=== PATIENT | female | born 1965 | race Caucasian/White ===

== ENCOUNTER 2017-08-02 08:30 | Observation (INO) | payer OTHER ==
[~2017-08-02] VITALS: Ht 175.3 cm; Wt 91.6 kg
[~2017-08-02 08:30] MED LIST: CHILDREN'S MUL1 EAC2 PO; GABAPENTIN300 MG PO; LISINOPRIL20 MG PO; NORCO 5-325 TA1 EACH PO; PROTONIX40 MG PO; SEPTRA DS TABL1 EACH PO; VITAMIN D2000 UNIT PO; VITAMIN D350000 UNIT PO; VITAMIN D5000 UNIT PO; WELLBUTRIN SR100 MG; ZOFRAN ODT4 MG PO; ZOLOFT25 MG
[2017-08-02] MEDS ORDERED: RITALIN10 MG PO (08:54)
--- NOTE | 2017-08-02 10:44 | NUR ---
08/02/17 1043 Sagrario Kaur REPORT FROM LUM[facility] MARKER.
--- NOTE | 2017-08-02 11:42 | NUR ---
DRESSING AND IV SITE INTACT THRU PACU
--- NOTE | 2017-08-02 11:44 | NUR ---
PT RECEIVED FROM PACU AT 1130. PT TRANSFERED TO BED. PT STATES PAIN TOLERABLE. PT DENIES NAUSEA. PT LUNG SOUNDS CLEAR, 100% ON ROOM AIR, DENIES SOB. RIGHT HAND WITH NUMBNESS, RECEIVED NERVE BLOCK, ABLE TO MOVE FINDERS, CAP REFILL 2 SECONDS. ARM ELEVATED, ICE PACK IN PLACE. PT PROVIDED WARM BLANKETS. PT DENIES OTHER NEEDS AT THIS TIME.
--- NOTE | 2017-08-02 12:30 | NUR ---
PT RESTING IN BED. PT DENIES NAUSEA. ON ROOM AIR. PT REQUESTING PAIN MEDICATION. AT BEDSIDE. PT DENIES OTHER NEEDS AT THIS TIME.
--- NOTE | 2017-08-02 13:30 | NUR ---
PT RESTING IN BED. PT ASSISTED TO BATHROOM, SBA. PT ASSISTED BACK TO BED, ARM ELEVATED ON 2 PILLOWS. PT STATES PAIN TOLERABLE AT THIS TIME. PT DENIES NEEDS AT THIS TIME.
[2017-08-02] MEDS ORDERED: SUMATRIPTAN SUC50 MG PO (13:43)
[2017-08-02] MEDS ORDERED: NASCOBAL1 EACH NAS (13:44)
--- NOTE | 2017-08-02 14:15 | NUR ---
PT IS SITTING UP IN BED EATING HER LUNCH, CALL LIGHT IN REACH. PT DID NOT NEED ANYTHING ELSE AT THE MOMENT
--- NOTE | 2017-08-02 14:56 | NUR ---
MED REC COMPLETE WITH BIMART REFILL HISTORY AND PATIENT INTERVIEW.
--- NOTE | 2017-08-02 15:13 | NUR ---
ADMISSION PROCESS COMPLETED. PT RESTING IN BED. ICE PACK REFRESHED. PT DENIES NAUSEA. ON ROOM AIR. HEEL PROTECTORS AND SCDS IN PLACE. PT REQUESTING TO REST. CALL LIGHT WITHIN REACH.
--- NOTE | 2017-08-02 16:21 | NUR ---
PT RESTING IN BED. AT BEDSIDE. PT STATES PAIN TOLERABLE AT THIS TIME, STATES SHE IS BEGINING TO HAVE SENSATION TO PINKY FINGER. ICE PACK IN PLACE, DRESSING INTACT, SMALL AMOUNT OF DRAINAGE, UNCHANGED. PT DENIES NAUSEA, TOLERATING DIET, BOWEL TONES ACTIVE. PT DENIES NEEDS AT THIS TIME. SCDS AND HEEL PROTECTORS IN PLACE.
--- NOTE | 2017-08-02 17:57 | NUR ---
PT REQUESTING PAIN MEDICATION, GIVEN 1 TAB NORCO. DISCUSSED PAIN MANAGEMENT WITH PT. PT DENIES OTHER NEEDS AT THIS TIME. ATE 75% OF DINNER, TOLERATED WELL.
--- NOTE | 2017-08-02 18:06 | NUR ---
PT IS SITTING UP IN BED VISITING WITH FAMILY. CALL LIGHT IN REACH. PT DID NOT NEED ANYTHING ELSE AT THE MOMENT
--- NOTE | 2017-08-02 18:43 | NUR ---
PT RECEIVED TO FLOOR AT 1130. PT ON ROOM AIR, LUNG SOUNDS CLEAR. PT WITH EXTERNAL FIXATOR TO R FOREARM, ARM ELEVATED ON PILLOW, ICE PACK IN PLACE. SMALL AMOUNT OF BLOODY DRAINAGE AT WRIST, UNCHANGED SINCE 1230. PT UP 1PA TO BATHROOM, VOIDING QS. SALINE LOCKED. TOLERATING REGULAR DIET. SCD AND HEEL PROTECTORS INPLACE. I/S AT BEDSIDE. PAIN CONTROLLED WITH SCHEDULED OXYCODONE AND TORADOL, PRN NORCO 1 TAB GIVEN ONCE.
--- NOTE | 2017-08-02 19:00 | NUR ---
RECEIVED REPORT AT 1900. FOUND PT IN BED WITH RIGHT ARM ELEVATED AND FAMILY AT BEDSIDE. PT SEEMD DISAPOINTED ABOUT TODAY'S EVENTS.
--- NOTE | 2017-08-02 21:47 | NUR ---
V/S ARE WDL. SO FAR PRN PAIN MEDS ALONG WITH SCHEDULED PAIN MEDS ARE WORKING WELL. ALL FINGERS ON RIGHT HAND HAVE A CAP REFILL OF <3SEC. FINGERS ARE WARM TO TOUCH. RINGFINGER AND LITTLE FINGER STILL HAS SOME NUMBNESS. DRESSING HAS SOME BLEEDING ON UNDERSIDE OF WRIST WHICH HAS NOT INCREASED SINCE START OF SHIFT. RIGHT ARM IS ELEVATED WITH 2 PILLOWS AND ICE PACKS. ALL LOBES ARE CLEAR.
--- NOTE | 2017-08-03 | EKG ---
[facility] [address] [place] [address] Signed Normal sinus rhythm Prolonged QT Abnormal ECG No previous ECGs available Confirmed by JENIFER BROWN MD ([id number]) on 08/03/2017 12:00:04 AM Electronically Signed By: JENIFER BROWN MD 08/03/17 0000 PATIENT NAME: THOMAS CUENCA Electrocardiogram DATE OF : 63 PHYSICIAN: JENIFER BROWN MD REPORT #: [id number] REPORT IS CONFIDENTIAL AND NOT TO BE RELEASED WITHOUT AUTHORIZATION
--- NOTE | 2017-08-03 02:34 | NUR ---
PAIN IS WELL UNDER CONTROL WITH ALL PAIN MEDS AVAILABLE. PT HAD SOME ITCHING ON UPPER BODY, 6.25MG OF BENDARYL IV WAS GIVEN. PT STATED THAT IT HELPED A LOT. RIGHT FINGERS ARE WARM TO TOUCH AND CAP REFILL IS <3SEC. THERE IS NO NEW BLEEDING ON SX SITE. EDEMA ON FINGERS IS MINIMAL.
--- NOTE | 2017-08-03 04:12 | NUR ---
PT IS SLEEPING AT THIS TIME.
--- NOTE | 2017-08-03 05:25 | NUR ---
PT OVERALL HAD AN UNEVENTFUL NIGHT. EDEMA ON RIGHT ARM IS MINIMAL, FINGERS ARE ALL WARM TO TOUCH, NUMBNESS HAS ALMOST SUBSIDED. V/S ARE WDL, PT URINE OUTPUT IS ADEQUATE. PAIN IS WELL CONTROLLED WITH ALL PAIN MEDS AVAILABLE. PT HAD SOME ISSUES WITH ITCHING FROM THE OXYCODONE MOST LIKELY AND BENADRYL HAD TO BE GIVEN. NO NEW ISSUES NOTED SO FAR.
--- NOTE | 2017-08-03 08:00 | NUR ---
PT RESTING IN BED, EATING BREAKFAST. PT REQUESTING PAIN MEDICATION, RATING PAIN 8/10 TO RIGHT ARM, GIVEN 5 MG OXYCODONE, 2 TAB NORCO, IV TORADOL. ICE PACK IN PLACE. PT DENIES NAUSEA, TOLERATING REGUALR DIET, BOWEL TONES ACTIVE. PT HAS FULL SENSATION TO THUMB THROUGH MIDDLE FINGER, RING FINGER AND PINKY "FEEL TIGHT", CAP REFILL 1 SECOND, FINGERS WARM. PT WITH SCDS AND HEEL PROTECTORS INPLACE. ON ROOM AIR, O2 SATS 98%, LUNG SOUNDS CLEAR. DRESSING INTACT, OLD DRIED DRAINAGE AT WRIST. PT DENIES NEEDS AT THIS TIME. PLAN TO CONTINUE WITH PAIN MEDICATION AVAILABLE.
--- NOTE | 2017-08-03 08:08 | NUR ---
patient had just recieved breakfast, she said she could manage on her own and would call when she was finished.
--- NOTE | 2017-08-03 09:35 | NUR ---
PT REPORTING PAIN REMAINS HIGH, RATING 7/10, DESPITE NORCO, TORADOL AND OXYCODONE. DR. CALHOUN NOTIFIED, TELEPHONE ORDER TO INCREASE OXYCODONE TO 10 MG Q4H AND TO GIVE 10 MG NOW, RBOV.
--- NOTE | 2017-08-03 09:53 | NUR ---
PT GIVEN 10 MG OXYCODONE ORDERED. DISCUSSED PAIN MANAGEMENT WITH PT. PT DENIES NEEDS AT THIS TIME.
--- NOTE | 2017-08-03 10:45 | NUR ---
PT COMPLAINT OF PURITIS. GIVEN 25 MG IV BENADRYL. PT DENIES OTHER NEEDS AT THIS TIME.
--- NOTE | 2017-08-03 12:24 | NUR ---
PATIENT HAS BEEN GIVEN A CYRO CUFF FOR HER WRIST, SHE IS A BIT UNCOMFORTABLE BUT DOES NOT WANT ANY ASSISTANCE SHE WOULD LIKE TO REST AT THIS TIME.
--- NOTE | 2017-08-03 14:45 | NUR ---
PT RESTING IN BED, FRIEND AT BEDSIDE. PT GIVEN SCHEDULED OXYCODONE AND TORADOL, PT STATES PAIN "IS MUCH BETTER", RATING AT 3/5. CYROCUFF IN PLACE, PT STSTAES SHE FEELS IT IS MORE COLD AND MORE EFFECTIVE THAN ICE PACK. PT DENIES OTHER NEEDS AT THIS TIME.
--- NOTE | 2017-08-03 16:03 | NUR ---
PAIN REASSESSED, PT RATING PAIN 01/25, DISCUSSED nORCO. PT WANTING 1 TAB NORCO, GIVEN. PT DENIES OTHER NEEDS AT THIS TIME.
--- NOTE | 2017-08-03 16:20 | NUR ---
REPORT RECEIVED FROM LIUDMILA, TOOK OVER CARE OF THE PATIENT
--- NOTE | 2017-08-03 17:03 | NUR ---
PATIENT SITTING UP IN BED WATCHING TV, CRYO CUFF FILLED UP WITH ICE AND PATIENT SET UP FOR DINNER, CELL PHONE PLUGGED IN FOR HER. PATIENT DENIES PAIN OR OTHER NEEDS AT THIS TIME.
--- NOTE | 2017-08-03 18:40 | NUR ---
PATIENT OXYCODONE GIVEN PO AT THIS TIME FOR C/O PAIN, THIS IS HER SCHEDULED MEDICATION. PATIENT DENIES OTHER NEEDS
--- NOTE | 2017-08-03 19:00 | NUR ---
RECEIVED REPORT AT 1900. FOUND PT IN BED WITH FAMILY AT BEDSIDE. PT COMPLAINED OF PAIN 06/27.
--- NOTE | 2017-08-03 21:50 | NUR ---
V/S WERE WDL. PAIN IS WELL CONTROLLED WITH ALL PAIN MEDS GIVEN ON A REGULAR BASIS. BENADRYL 25MG IV GIVEN FOR ITCHING. ALL FIINGERS ON RIGHT HAND ARE WARM TO TOUCH, THERE IS STILL SOME NUMBNESS IN PINKY FINGER. RIGHT ARM IS ELEVATED AND KRYOCAF IS ON. PT IS RESTING IN BED. ALL LOBES ARE CLEAR AND PT IS PASSING GAS, NO BM SO FAR.
--- NOTE | 2017-08-04 00:25 | NUR ---
PT IS SLEEPING AT THIS TIME.
--- NOTE | 2017-08-04 02:53 | NUR ---
PAIN IS WELL CONTROLLED. PT RECEIVED ANOTHER 25MG DOSE OF BENADRYL. THERE HAS BEEN OTHERWISE NO CHANGES FOR THIS PT.
--- NOTE | 2017-08-04 04:08 | NUR ---
PT IS SLEEPING AT THIS TIME.
--- NOTE | 2017-08-04 05:57 | NUR ---
V/S WERE WDL, PAIN HAS BEEN WELL CONTROLLED WITH SCHEDULED PAIN MEDICATION, PT HAS RECEIVED BENADRYL 25MG IV X3 FOR ITCHING, FINGERS IN RIGHT HAND ARE WARM TO TOUCH WITH MINIMAL EDEMA. DRESSING IS D/I WITH SOME OLD SHADOWING FORM YESTERDAY. NO NEW ISSUES NOTED FOR THIS PT.
--- NOTE | 2017-08-04 08:04 | NUR ---
PT AWAKE IN BED. ATE BREAKFAST. TOLERATED WELL. ACCIDENTALLY BUMPED ARM IN BED AND ASKED FOR PRN PAIN MEDS. STATES THAT IT WAS FEELING PRETTY GOOD PRIOR TO THAT. STATES RIGHT PINKY AND RING FINGER HAVE GONE NUMB AGAIN. REPOSITIONED FOR COMFORT. CRYO IN PLACE. PULSES INTACT, FINGERS WARM AND ABLE TO WIGGLE ALL.
--- NOTE | 2017-08-04 10:14 | NUR ---
PT STATES THE ARM ITSELF IT NOT VERY PAINFUL BUT THE NERVE NUMBNESS IS DRIVING HER CRAZY AND BUMPS PAIN UP TO 04/27
[2017-08-04] MEDS ORDERED: MIRALAX17 GM PO (10:27)
[2017-08-04] MEDS ORDERED: NEURONTIN300 MG PO (10:27)
[2017-08-04] MEDS ORDERED: LEVAQUIN750 MG PO (10:27)
[2017-08-04] MEDS ORDERED: OXYCODONE HCL5 MG PO (10:28)
[2017-08-04] MEDS ORDERED: HYDROCODON-ACE1 EA11 PO (10:28)
--- NOTE | 2017-08-04 10:28 | NUR ---
DR IN ROOM TO SEE PT. SENDING HOME TODAY. PT APPEARS AGREEABLE. IS LOOKING FORWARD TO GOING HOME.
--- NOTE | 2017-08-04 11:56 | NUR ---
PT DC HOME WITH . WHEELED OUT TO CAR WITH NUTRITION SERVICES WORKER. DC INSTRUCTIONS GIVEN AND AND PT VERBALIZED UNDERSTANDING. SL REMOVED WNL. EXT. FIXATOR INPLACE WITH SMALL AMOUNT OF DRY DRAINAGE ON GAUZE. PAIN WELL CONTROLLED WITH MEDS.
--- NOTE | 2017-08-05 08:31 | OR ---
[facility] [address] [place], [place] [address] Signed DATE OF PROCEDURE: 08/02/17 PREOPERATIVE DIAGNOSIS: Grade 1 right open wrist fracture, distal radius. POSTOPERATIVE DIAGNOSIS: Grade 1 right open wrist fracture, distal radius. PROCEDURES PERFORMED Open reduction and pinning of distal radius with application of external fixator. Irrigation and debridement of skin, subcutaneous tissue, and bone, right wrist. SURGEON: Rusty Levine MD CONTRACT ADMINISTRATION SPECIALIST: None. ANESTHESIA: General with axillary block. BLOOD LOSS: 50. IMPLANTS Two 1.6 mm K-wires, one 2.0 K-wire, Synthes distal radius external fixator set. BRIEF HISTORY Comfort is a 51-year-old female who was at the [employer] getting ready for the parade this morning. The horse next to her was spooked, knocked her to the ground where she sustained a distal radius fracture. She was brought to me at the [employer] with her wrist basically 180 degrees displaced. The ulna was present through the skin. I reduced her to a neutral position there and placed her in a splint with dressings on the wound. She then had her drive her to the emergency room where I met her. Risks, benefits, and alternatives of surgery were discussed with her and she elected to proceed. DESCRIPTION OF PROCEDURE Once consent was obtained, she was taken to the operating room. After adequate anesthesia, a well-padded proximal arm tourniquet was placed. The right upper extremity was prepped and draped in a standard sterile fashion. The ulnar laceration was then extended to allow delivery of the bone. This was then grossly debrided of hay and dirt and washed out with a liter of antibiotic solution. Once this was completed, we attempted a closed reduction of the wrist; however, it was quite displaced, fragmented and unable to get it reduced. We made a small 1 cm dorsal incision over the distal radius. Using the [place] elevator, I was able to shoe horn the bone back into rough position. We then closed reduced it and placed 2 K-wires in radial styloid engaging proximally across the fracture engaging the body of the radius. A 2.0 K-wire was placed from the dorsal lip of the joint and again across the fracture engaging the body of the Electronically Signed By: RUSTY LEVINE MD 08/05/17 0831 PATIENT NAME: COMFORT CUENCA OPERATIVE REPORT DATE OF : 63 PHYSICIAN: RUSTY LEVINE MD REPORT #: [id number] REPORT IS CONFIDENTIAL AND NOT TO BE RELEASED WITHOUT AUTHORIZATION [facility] [address] [place], [place] [address] Signed radius. This was held in reasonably good fracture position. The distal radius has multiply comminuted and I really could not get any better reduction closed and I felt that an open reduction would cause more problems. We went ahead and applied the external fixator. The 2 pins in the index metacarpal placed through separate stab in cisions, 2 pins in the midshaft radius. Again, these were done through stab incisions with blunt dissection down to the bone. The guide was then placed on the bone and both pins were placed. The clamps were applied and the long carbon fiber bar was applied with the wrist in about 15 degrees of ulnar deviation and 15 degrees of flexion. This was checked using the image intensifier and the wrist was not over distracted as the metacarpal and carpal alignment was normal. All attachments on external fixator were tightened. The wounds were cleansed. The 2 incisions were closed using 2-0 nylon and all wounds were dressed with Mepilex Ag dressing. Gauze was placed over this and roller gauze was then used to secure it. She was awakened and taken to recovery room in satisfactory condition. All sponge, needle, instrument counts were correct. Rusty Levine MD BA/Modl /[id number] cc: Jony Cortez DO Electronically Signed By: RUSTY LEVINE MD 08/05/17 0831 PATIENT NAME: COMFORT CUENCA OPERATIVE REPORT DATE OF : 63 PHYSICIAN: RUSTY LEVINE MD REPORT #: [id number] REPORT IS CONFIDENTIAL AND NOT TO BE RELEASED WITHOUT AUTHORIZATION
== END 2017-08-04 15:00 | disposition home or self-care (01) ==
LOC: ED 08:30 → DS 09:26 → MS 11:30 → DS 11:31 → MS 08-04 15:00
PROVIDERS: ADMIT Specialist
PROC: 0PSH04Z Reposition Right Radius with Internal Fixation Device, Open Approach (ICD-10-PCS; 2017-08-02)
PROC: 0PHH35Z Insertion of External Fixation Device into Right Radius, Percutaneous Approach (ICD-10-PCS; 2017-08-02)
PROC: 3E0T3CZ (ICD-10-PCS; principal; 2017-08-02 09:30)
DX: S52.501B Unspecified fracture of the lower end of right radius, initial encounter for open fracture type I or II (principal); S52.601B Unspecified fracture of lower end of right ulna, initial encounter for open fracture type I or II; K21.9 Gastro-esophageal reflux disease without esophagitis; W55.12XA Struck by horse, initial encounter; I10 Essential (primary) hypertension; F32.9 Major depressive disorder, single episode, unspecified; G89.18 Other acute postprocedural pain; S54.01XA Injury of ulnar nerve at forearm level, right arm, initial encounter; L29.9 Pruritus, unspecified; T40.2X5A Adverse effect of other opioids, initial encounter; Y92.838 Other recreation area as the place of occurrence of the external cause; Z79.899 Other long term (current) drug therapy; Z88.0 Allergy status to penicillin; Z88.5 Allergy status to narcotic agent; Z23 Encounter for immunization
CPT/HCPCS: 01830; 64415; 71010; 73100; 73110; 76942; 80053; 85025; 90715; 93005; 93010; 96374; 96375; 96376; 99285; C1713; G0378; J0330; J0690; J0735; J1100; J1200; J1885; J1956; J2250; J2405; J2704; J2765; J3010

== ENCOUNTER 2019-03-13 13:00 | Emergency (ER) | payer OTHER ==
[~2019-03-13] VITALS: Ht 175.3 cm; Wt 90.7 kg
--- OUTSIDE RECORDS SUMMARY | ~2019-03-13 | XMS | Encounter Summary ---
Demographics + + + | Address | [address] | | | [place] [address] | + + + | Home Phone | | + + + | Preferred Language | Unknown | + + + | Marital Status | | + + + | Baptism Affiliation | [id number] | + + + | Race | Unknown | + + + | Ethnic Group | Unknown | + + + Author + + + | Author | [facility] | + + + | Organization | [facility] | + + + | Address | Unknown | + + + | Phone | Unavailable | + + + Support + + + + + | Name | Relationship | Address | Phone | + + + + + | Tacho Joe | ECON | [address] | | | | | [place] | | | | | [address] | | + + + + + Care Team Providers + +------+ + | Care Nature Photographer Name | Role | Phone | + +------+ + | Souleymane Calderon MD | PCP | | + +------+ + Reason for Visit + + + | Reason | Comments | + + + | Follow-up | Right wrist pain | + + + Surgical (Routine) + +--------+ + + + + | Status | Reason | Specialty | Diagnoses / | Referred By | Referred To | | | | | Procedures | Contact | Contact | + +--------+ + + + + | Authorized | | Orthopedic | Diagnoses | Self, | [facility] | | | | Surgery | RIGHT WRIST | Referred | [place] | | | | | Procedures | Phone: | Samreen [address] | | | | | ORTHO | [phone] | [facility] [place], | | | | | FOLLOW UP | Fax: | [place] | | | | | | [phone] | [address] | | | | | | | Phone: | | | | | | | [phone] | | | | | | | Fax: | | | | | | | [phone] | + +--------+ + + + + Encounter Details +--------+---------+ + + + | Date | Type | Department | Care Team | Description | +--------+---------+ + + + | 12/15/ | Office | [facility] | Augustus Olmos, | Right wrist pain | | 2019 | Visit | [facility] | MD [address] | (Primary Dx); Right | | | | [facility] | [place] [address] | wrist fracture, | | | | [address] | [phone] | open, initial | | | | [place], [place] | | encounter; Acquired | | | | [address] | | trigger finger of | | | | [phone] | | right middle finger | +--------+---------+ + + + Social History + +-------+ +--------+------+ | Tobacco Use | Types | Packs/Day | Years | Date | | | | | Used | | + +-------+ +--------+------+ | Never Smoker | | | | | + +-------+ +--------+------+ + +---+---+---+ | Smokeless Tobacco: | | | | | Never Used | | | | + +---+---+---+ + + +---------+ + | Alcohol Use | Drinks/We | oz/Week | Comments | | | ek | | | + + +---------+ + | No | | | | + + +---------+ + + + + | Sex Assigned at | Date Recorded | | | | + + + | Not on file | | + + + as of this encounter Last Filed Vital Signs + + + + | Vital Sign | Reading | Time Taken | + + + + | Blood Pressure | 124/78 | 12/15/2018 7:54 AM PST | + + + + | Pulse | - | - | + + + + | Temperature | - | - | + + + + | Respiratory Rate | - | - | + + + + | Oxygen Saturation | - | - | + + + + | Inhaled Oxygen | - | - | | Concentration | | | + + + + | Weight | 92.5 kg (204 lb) | 12/15/2018 7:54 AM PST | + + + + | Height | 175.3 cm (5' 9") | 12/15/2018 7:54 AM PST | + + + + | Body Mass Index | 30.13 | 12/15/2018 7:54 AM PST | + + + + in this encounter Progress Notes Augustus Olmos MD - 12/15/2018 8:20 AM PSTFormatting of this note may be different from the original. [facility]: Orthopedic Surgery Patient Name:Comfort Joe AGE: 53 y.o. :1965 CHIEF COMPLAINT: Follow-up (Right wrist pain) Right middle finger triggering HPI HISTORY OF PRESENT ILLNESS Our patient is a very pleasant 53-year-old female status post a severe right distal radius fracture that occurred approximately 13 months ago that is status post multiple surgeries. T he patient today complains of right middle finger triggering, this has be recalcitrant to mu ltiple injections. The pain is at the base of the A1 juan carlos. She is still slightly stiff wit h deep flexion of the right middle finger. The problem is constant and of moderate severity. There is mild associated swelling. She has improved dramatically with her range of motion o f the wrist including full pronation and supination without any instability. She is still zendejas ving some mild problems with making a composite fist. No signs or symptoms of infection. She does have sharp pain with middle finger motion that unfortunately has worsened since last v isit REVIEW OF SYSTEMS, comprehensive review of systems performed and is negative except for not ed above and below Review of Systems Past Medical History Diagnosis Date Arthritis Biceps muscle strain can't move shoulder, bicep fingers on the right. Hemorrhage of gastrointestinal tract, unspecified 2008 bleeding ulcer Hypertension wnl currently Kidney stone 2001 Narcolepsy Unspecified visual disturbance GLASSES / MCGEE-ADIE SYNDROME L EYE Wrist injury horse injury on 08/09/2017, compound FX Past Surgical History Procedure Laterality Date CARPAL TUNNEL RELEASE 08/13/2017 Procedure: CARPAL TUNNEL RELEASE; Surgeon: Augustus Olmos MD; Location: [facility]; Service: Orthopedics;; SECTION 1991 CHOLECYSTECTOMY 1992 ELBOW SURGERY Left 2014 GASTRIC BYPASS 2009 HARDWARE PRESENT SCREWS IN LEFT LEG HARDWARE REMOVAL Right 11/12/2017 Procedure: HAND - HARDWARE REMOVAL; Surgeon: Augustus Olmos MD; Location: [facility]; Service: Orthopedics; Laterality: Right; HYSTERECTOMY 1991 ORIF TIBIA & FIBULA FRACTURES Left 2008 STELLATE GANGLION BLOCK Right 05/12/2018 STELLATE GANGLION BLOCK Right 05/26/2018 STELLATE GANGLION BLOCK Right 06/02/2018 WRIST SURGERY Right 08/13/2017 Procedure: WRIST - ORIF; Surgeon: Augustus Olmos MD; Location: [facility]; Service : Orthopedics; Laterality: Right; RT WRIST ORIF SPANNING PLATE Allergies Allergen Reactions Hydromorphone Hives, Nausea and Vomiting and Rash Penicillin G Anaphylaxis Codeine Other (See Comments) HIVES, HALLUCINATIONS, VOMIT. Morphine Other (See Comments) HIVES , HALLUCINATION, VOMIT Oxycodone Other (See Comments) Dizziness, NAUSEA Prior to Admission medications Medication Sig Start Date End Date Taking? Authorizing Provider calcitRIOL (ROCALTROL) 0.5 MCG capsule Take 0.5 mcg by mouth. Historical Provider diphenhydrAMINE (BENADRYL) 25 mg capsule Take 25 mg by mouth every 6 (six) hours as needed for Itching. Historical Provider gabapentin (NEURONTIN) 100 MG capsule Take 100 mg by mouth. 12/16/17 Historical Provider gabapentin (NEURONTIN) 300 MG capsule Take 300 mg by mouth 3 (three) times daily. Histor ical Provider HYDROcodone-acetaminophen (NORCO) 5-325 MG per tablet Take 1 tablet by mouth every 6 (six) hours as needed for Pain. Historical Provider Ibuprofen-Diphenhydramine Cit (ADVIL PM PO) Take by mouth. Historical Provider levofloxacin (LEVAQUIN) 750 MG tablet Take 750 mg by mouth daily. Historical Provider lisinopril (ZESTRIL) 20 MG tablet Take 20 mg by mouth. Historical Provider methylphenidate (RITALIN) 10 MG tablet Take 10 mg by mouth. Historical Provider pantoprazole (PROTONIX) 40 MG tablet Take 40 mg by mouth. Historical Provider sertraline (ZOLOFT) 50 MG tablet Take 50 mg by mouth. Historical Provider SUMAtriptan (IMITREX) 50 MG tablet Take 50 mg by mouth. Historical Provider Family History Problem Relation Age of Onset Diabetes type II Father Hypertension Father Social History Social History Marital status: Spouse name: N/A Number of children: N/A Years of education: N/A Occupational History Not on file. Social History Main Topics Smoking status: Never Smoker Smokeless tobacco: Never Used Alcohol use No Drug use: No Sexual activity: Not on file Comment: NOT ASKED Other Topics Concern Not on file Social History Narrative No narrative on file PHYSICAL EXAM Vital Signs: BP 124/78 | Ht 1.753 m (5' 9") | Wt 92.5 kg (204 lb) | BMI 30.13 kg/m Physical Exam Well developed well nourished patient No acute distress Alert and oriented times three Head and neck are normal Oropharynx is clear Gaze is conjugate Breathing is unlabored Heart is regular rate and rhythm Ortho Exam RUE Skin is clean, dry and intact Brisk cap refill 2+ pulses No deficits noted Motor and sensation are intact No masses, no lymphadenopathy Normal sweat patterns No hyperreflexia Negative sheikh's maneuver Compartments are soft and compressible Right hand has significant pain with range of motion of the middle finger with metacarpopha langeal joint motion from 0 to about 30 of flexion and then pain over the A1 juan carlos limits any further motion PROBLEM LIST Encounter Diagnoses Name Primary? Right wrist pain Yes Right wrist fracture, open, initial encounter Acquired trigger finger of right middle finger ASSESSMENT & PLAN Conservative and operative options reviewed. The patient would like to move forward with dejesus rgery understanding all options available. Anesthesia risks and benefits have been reviewed as well. Risks and benefits of right middle finger trigger release surgery have been reviewed in det ail. Healing rates have been reviewed in detail as well as what to expect postoperatively. W e will move forward with surgery. Risks include but are not limited to bleeding, infection, need for reoperation, damage to nerves/blood vessels/tendons, chronic deformity and pain. All questions have been answered. Rehabilitation protocols reviewed. Success rates and recurrence rates have been discussed. N o guarantees have been given. Primary Care Physician: SOULEYMANE Olmos MD This document has been prepared with [employer] voice recognition system. The possibility of "s ound alike" carcass washer errors, and additions, or deletions may occur. If there is any que stion with respect to clarity of the message being conveyed, please contact me directly for clarification. in this encounter Plan of Treatment + +--------+ + + | Name | Priori | Associated Diagnoses | Order Schedule | | | ty | | | + +--------+ + + | Case Request Operating Room: | Routin | Right wrist pain | Expected: | | FINGER - TRIGGER RELEASE | e | Right wrist | 12/15/2018, Expires: | | | | fracture, open, | 12/15/2019 | | | | initial encounter | | + +--------+ + + as of this encounter Results X-ray wrist limited right (12/15/2018 8:04 AM) + + + | Impressions | Performed At | + + + | Right wrist shows healing of a complex right distal radius | [facility] | | fracture dislocation with some posttraumatic degenerative disease and | [facility] | | mild rotation of the lunate that appears actually improved from | | | previous films. | | + + + + + + | Narrative | Performed At | + + + | INDICATION: | [facility] | | Right wrist fracture COMPARISON: 03/31/18 TECHNIQUE: Multiple views | [facility] | | right wrist FINDINGS: Right wrist shows healing of a complex right | | | distal radius fracture dislocation with some posttraumatic | | | degenerative disease and mild rotation of the lunate that appears | | | actually improved from previous films. | | | | | |FINDINGS: Right wrist shows healing of a complex right distal radius | | |fracture dislocation with some posttraumatic degenerative disease and mild | | |rotation of the lunate that appears actually improved from previous films. | | | | | + + + + + + + + | Performing | Address | City/State/Zipcode | Phone Number | | Organization | | | | + + + + + | [facility] | [address] | [place] [address] | | + + + + + in this encounter Visit Diagnoses + + | Diagnosis | + + | Right wrist pain - Primary | + + | Pain in joint, forearm | + + | Right wrist fracture, open, initial encounter | + + | Acquired trigger finger of right middle finger | + +
--- OUTSIDE RECORDS SUMMARY | ~2019-03-13 | XMS | Encounter Summary ---
Demographics + + + | Address | [address] | | | [place] [address] | + + + | Home Phone | | + + + | Preferred Language | Unknown | + + + | Marital Status | | + + + | Hindu Affiliation | 1013 | + + + | Race | Unknown | + + + | Ethnic Group | Unknown | + + + Author + + + | Author | [facility] [employer] | + + + | Organization | [facility] [employer] | + + + | Address | Unknown | + + + | Phone | Unavailable | + + + Support + + + + + | Name | Relationship | Address | Phone | + + + + + | Tacho Joe | ECON | [address] | | | | | [place] | | | | | [address] | | + + + + + Care Team Providers + +------+ + | Care Director Of Education Name | Role | Phone | + +------+ + | Madhu Calderon MD | PCP | | + +------+ + Reason for Visit Auth/Cert +--------+--------+ + + + + | Status | Reason | Specialty | Diagnoses / | Referred By | Referred To | | | | | Procedures | Contact | Contact | +--------+--------+ + + + + | | | | Diagnoses | | | | | | | Right | | | | | | | middle | | | | | | | finger | | | | | | | trigger | | | | | | | Procedures | | | | | | | FINGER - | | | | | | | TRIGGER | | | | | | | RELEASE | | | +--------+--------+ + + + + Encounter Details +--------+---------+ + + + | Date | Type | Department | Care Team | Description | +--------+---------+ + + + | 01/09/ | Surgery | [facility] | Augustus Olmos, | FINGER - TRIGGER | | 2018 | | [facility] | MD Samreen PERSAUD | RELEASE | | | | OP Samreen PERSAUD | [place] [address] | | | | | [place], [place] | [phone] | | | | | [address] | | | | | | [phone] | | | +--------+---------+ + + + Social History [...] + + + | Blood Pressure | 149/80 | 01/09/2019 9:30 AM PST | + + + + | Pulse | 53 | 01/09/2019 9:30 AM PST | + + + + | Temperature | 36.6 C (97.8 F) | 01/09/2019 9:15 AM PST | + + + + | Respiratory Rate | 16 | 01/09/2019 9:30 AM PST | + + + + | Oxygen Saturation | 96% | 01/09/2019 9:30 AM PST | + + + + | Inhaled Oxygen | - | - | | Concentration | | | + + + + | Weight | 93.4 kg (206 lb) | 01/09/2019 8:08 AM PST | + + + + | Height | 175.3 cm (5' 9") | 01/09/2019 8:08 AM PST | + + + + | Body Mass Index | 30.42 | 01/09/2019 8:08 AM PST | + + + + in this encounter Discharge Summaries Augustus Olmos MD - 01/09/2019 9:21 AM PSTFormatting of this note may be different from the original. [facility] Service: Orthopedic Surgery Brief Post-op Discharge Note DISCHARGE DIAGNOSES: Active Problems: Right wrist fracture, open, initial encounter Right wrist pain Resolved Problems: * No resolved hospital problems. * Procedures: Procedure(s) with comments: FINGER - TRIGGER RELEASE - RT MIDDLE FINGER TRIGGER RELEASE DUPUYTRENS CONTRACTURE RELEASE - Right ring finger TENOTOMY-UPPER EXTREMITY - flexor tendon partial tenotomy This patient was transferred to the recovery area post-operatively and has experienced no d ifficulties at the time of my assessment. The patient is anticipated to continue to meet di scharge criteria per protocol as assessed by nursing and may be discharged at that time with designated caregiver. Disposition: Home Condition: Good Code Status: Prior Follow up: Madhu Calderon MD [address] [place] [id number] Medication List START taking these medications ondansetron 4 MG tablet QTY: 20 tablet Refills: 0 Commonly known as: ZOFRAN Take 1 tablet by mouth 3 (three) times daily as needed for Nausea for up to 7 days. CHANGE how you take these medications * HYDROcodone-acetaminophen 5-325 MG per tablet QTY: 15 tablet Refills: 0 Commonly known as: NORCO Take 1 tablet by mouth every 6 (six) hours as needed for Pain for up to 7 days. What changed: You were already taking a medication with the same name, and this prescripti on was added. Make sure you understand how and when to take each. * HYDROcodone-acetaminophen 5-325 MG per tablet Refills: 0 Commonly known as: NORCO What changed: Another medication with the same name was added. Make sure you understand ho w and when to take each. * This list has 2 medication(s) that are the same as other medications prescribed for you. Read the directions carefully, and ask your doctor or other care provider to review them wit h you. CONTINUE taking these medications ADVIL PM PO Refills: 0 calcitRIOL 0.5 MCG capsule Refills: 0 Commonly known as: ROCALTROL diphenhydrAMINE 25 mg capsule Refills: 0 Commonly known as: BENADRYL * gabapentin 100 MG capsule Refills: 0 Commonly known as: NEURONTIN * gabapentin 300 MG capsule Refills: 0 Commonly known as: NEURONTIN lisinopril 20 MG tablet Refills: 0 Commonly known as: ZESTRIL methylphenidate 10 MG tablet Refills: 0 Commonly known as: RITALIN pantoprazole 40 MG tablet Refills: 0 Commonly known as: PROTONIX sertraline 50 MG tablet Refills: 0 Commonly known as: ZOLOFT SUMAtriptan 50 MG tablet Refills: 0 Commonly known as: IMITREX * This list has 2 medication(s) that are the same as other medications prescribed for you. Read the directions carefully, and ask your doctor or other care provider to review them wit h you. You might also be taking other medications not listed above. If you have questions about an y of your other medications, talk to the person who prescribed them or your Primary Care Pro vider. Where to Get Your Medications These medications were sent to [id number] - [place], [place] - [address] [place] [address] ondansetron 4 MG tablet You can get these medications from any pharmacy Bring a paper prescription for each of these medications HYDROcodone-acetaminophen 5-325 MG per tablet Augustus Olmos MD 01/09/2019in this encounter Discharge Instructions Augustus Olmos MD - 01/09/2019Augustus Olmos MD Postoperative Instructions As you recover from surgery here are instructions to aid the healing process and keep you s afe. Diet Regular diet, or your diet specified by your primary care provider. Begin with bonnie ar liquids and advance to solids as you tolerate. No alcoholic beverages on the day of surge ry. Also, please AVOID smoking as this can significantly delay the healing process. Activity Keep the operative extremity above the level of your heart for the next 5 days . Please avoid shoulder slings as these place your hand/wrist below the level of your heart Dressing/Surgery site Please keep your dressing clean and dry. You may remove your dressing in 3 days. You may shower tomorrow but please keep your wound/dressing covered and dry Pain medicine Take pain medicine PRN or as needed. Try to wean yourself gradually off pain medicine over several days. Do NOT drink alcohol or take sleeping medicines while on narcotics. You should take pain medicine with food to avoid nausea. In addition, pain med icine may cause constipation. Please drink plenty of fluids and take a laxative of your sheppard ce (over the counter) as needed. After surgery Slight swelling, pain and some bruising may occur after surgery. Please contact my office if any of the following occur: sustained temperature over 101.5?F, excessi ve bleeding, rapidly increasing numbness, inability to urinate within 8 hours, progressively increasing pain not relieved by pain medicines, signs of a wound infection (increased redne ss, swelling, pus drainage), or excessive swelling/tightness. Office appointment Please return to my office in 10-14 days for a dressing change. Call with any questions or to schedule/re-schedule an appointment. I look forward to seeing you. in this encounter Medications at Time of Discharge + + +--------+---------+ + + | Medication | Sig. | Disp. | Refills | Start | End Date | | | | | | Date | | + + +--------+---------+ + + | calcitRIOL | Take 0.5 mcg by | | | | | | (ROCALTROL) 0.5 MCG | mouth daily. | | | | | | capsule | | | | | | + + +--------+---------+ + + | diphenhydrAMINE | Take 25 mg by mouth | | | | | | (BENADRYL) 25 mg | every 6 (six) hours | | | | | | capsule | as needed for | | | | | | | Itching. | | | | | + + +--------+---------+ + + | gabapentin | Take 100 mg by | | | 12/16/19 | | | (NEURONTIN) 100 MG | mouth. | | | 18 | | | capsule | | | | | | + + +--------+---------+ + + | gabapentin | Take 300 mg by mouth | | | | | | (NEURONTIN) 300 MG | 3 (three) times | | | | | | capsule | daily. | | | | | + + +--------+---------+ + + | | Take 1 tablet by | | | | | | HYDROcodone-acetamin | mouth every 6 (six) | | | | | | ophen (NORCO) 5-325 | hours as needed for | | | | | | MG per tablet | Pain. | | | | | + + +--------+---------+ + + | | Take by mouth. | | | | | | Ibuprofen-Diphenhydr | | | | | | | amine Cit (ADVIL PM | | | | | | | PO) | | | | | | + + +--------+---------+ + + | lisinopril | Take 20 mg by mouth. | | | | | | (ZESTRIL) 20 MG | | | | | | | tablet | | | | | | + + +--------+---------+ + + | methylphenidate | Take 10 mg by mouth. | | | | | | (RITALIN) 10 MG | | | | | | | tablet | | | | | | + + +--------+---------+ + + | pantoprazole | Take 40 mg by mouth. | | | | | | (PROTONIX) 40 MG | | | | | | | tablet | | | | | | + + +--------+---------+ + + | sertraline | Take 50 mg by mouth | | | | | | (ZOLOFT) 50 MG | daily. | | | | | | tablet | | | | | | + + +--------+---------+ + + | SUMAtriptan | Take 50 mg by mouth. | | | | | | (IMITREX) 50 MG | | | | | | | tabletIndications: | | | | | | | Migraine, PRN | | | | | | + + +--------+---------+ + + | | Take 1 tablet by | 15 | 0 | 01/09/20 | | | HYDROcodone-acetamin | mouth every 6 (six) | tablet | | 19 | 9 | | ophen (NORCO) 5-325 | hours as needed for | | | | | | MG per tablet | Pain for up to 7 | | | | | | | days. | | | | | + + +--------+---------+ + + | ondansetron | Take 1 tablet by | 20 | 0 | 01/09/20 | | | (ZOFRAN) 4 MG tablet | mouth 3 (three) | tablet | | 19 | 9 | | | times daily as | | | | | | | needed for Nausea | | | | | | | for up to 7 days. | | | | | + + +--------+---------+ + + as of this encounter Plan of Treatment Not on fileas of this encounter Procedures + +--------+ + + + | Procedure Name | Priori | Date/Time | Associated Diagnosis | Comments | | | ty | | | | + +--------+ + + + | TENOTOMY-UPPER | | 01/09/2019 | Right wrist pain | | | EXTREMITY | | 8:55 AM | | | | | | PST | | | + +--------+ + + + +---+--------+ | | Case | | | Notes | | | RT | | | MIDDLE | | | | | | FINGER | | | | | | TRIGGE | | | R | | | RELEAS | | | E | +---+--------+ + +---+ + +---+ | DUPUYTRENS | | 01/09/2019 | Right wrist pain | | | CONTRACTURE RELEASE | | 8:55 AM | | | | | | PST | | | + +---+ + +---+ +---+--------+ | | Case | | | Notes | | | RT | | | MIDDLE | | | | | | FINGER | | | | | | TRIGGE | | | R | | | RELEAS | | | E | +---+--------+ + +---+ + +---+ | FINGER - TRIGGER | | 01/09/2019 | Right wrist pain | | | RELEASE | | 8:55 AM | | | | | | PST | | | + +---+ + +---+ +---+--------+ | | Case | | | Notes | | | RT | | | MIDDLE | | | | | | FINGER | | | | | | TRIGGE | | | R | | | RELEAS | | | E | +---+--------+ in this encounter Visit Diagnoses + + | Diagnosis | + + | Right wrist pain | + + | Pain in joint, forearm | + + | Right wrist fracture, open, initial encounter | + + Admitting Diagnoses + + | Diagnosis | + + | Right middle finger trigger | + + Administered Medications + +--------+ +-------+------+------+ | Medication Order | MAR | Action | Dose | Rate | Site | | | Action | Date | | | | + +--------+ +-------+------+------+ | bupivacaine (PF) (MARCAINE) 0.5 | Given | | 7 mLs | | | | % injection PRN, Starting Fri | | 9 08:53 | | | | | 01/09/19 at 0853, Intra-op | | PST | | | | + +--------+ +-------+------+------+ +---+---+ | | | +---+---+ + +-------+ +-------+---+---+ | ketorolac (TORADOL) injection | Given | | 30 mg | | | | 30 mg 30 mg, Intravenous, Once, | | 9 09:21 | | | | | 01/09/19 at 1000, For 1 dose, | | PST | | | | | PACU | | | | | | + +-------+ +-------+---+---+ +---+---+ | | | +---+---+ + +---------+ +---+ +---+ | lactated ringers infusion at | New Bag | | | 30 mL/hr | | | 30 mL/hr, Intravenous, | | 9 08:25 | | | | | Continuous, Starting 01/09/19 | | PST | | | | | at 0830, Pre-op | | | | | | + +---------+ +---+ +---+ +---+---+ | | | +---+---+ + +-------+ +---------+---+---+ | lidocaine 1 % injection 0.5 mL | Given | | 0.5 mLs | | | | 0.5 mL, Intradermal, PRN, for | | 9 08:25 | | | | | each IV start and peripheral | | PST | | | | | nerve blocks, Starting Fri | | | | | | | 01/09/19 at 0758, For 3 doses, | | | | | | | Pre-op | | | | | | + +-------+ +---------+---+---+ +---+---+ | | | +---+---+ + +-------+ +------+---+---+ | midazolam (VERSED) injection 2 | Given | | 2 mg | | | | mg 2 mg, Intravenous, Once PRN, | | 9 08:41 | | | | | Anxiety, Starting Sat01/09/19 at | | PST | | | | | 0758, For 1 dose, Pre-op | | | | | | + +-------+ +------+---+---+ +---+---+ | | | +---+---+ + +-------+ +------+---+---+ | ondansetron (ZOFRAN-ODT) | Given | | 8 mg | | | | disintegrating tablet 8 mg 8 mg, | | 9 09:45 | | | | | Oral, Once PRN, Nausea, | | PST | | | | | Vomiting, Starting Sat01/09/19 at | | | | | | | 0909, For 1 dose, PACU | | | | | | + +-------+ +------+---+---+ +---+---+ | | | +---+---+ in this encounter
--- OUTSIDE RECORDS SUMMARY | ~2019-03-13 | XMS | Clinical Summary ---
Demographics + + + | Address | [address] | | | [place] [address] | + + + | Home Phone | | + + + | Preferred Language | Unknown | + + + | Marital Status | | + + + | Methodist Affiliation | 1013 | + + + | Race | Unknown | + + + | Ethnic Group | Unknown | + + + Author + + + | Author | [facility] | | | and [place] | + + + | Organization | [facility] | | | and [place] | + + + | Address | Unknown | + + + | Phone | Unavailable | + + + Support + + + + + | Name | Relationship | Address | Phone | + + + + + | David Joe | ECON | Unknown | | + + + + + | Tacho Joe | ECON | [address] | | | | | [place] | | | | | [address] | | + + + + + Care Team Providers + +------+ + | Care Bisque Tile Burner Name | Role | Phone | + +------+ + | Zack Cortez DO | PP | Unavailable | + +------+ + Allergies + + + + + + | Active Allergy | Reactions | Severity | Noted | Comments | | | | | Date | | + + + + + + | Codeine | Hives, Rash | Medium | | | + + + + + + | Hydrocodone | Hives, Rash | Low | 06/19/20 | | | | | | 18 | | + + + + + + | Hydromorphone | Hives, Nausea And | High | 06/08/20 | | | | Vomiting, Rash | | 16 | | + + + + + + | Morphine | Swelling | Medium | | Other reaction(s): | | | | | | Other (See | | | | | | Comments) | + + + + + + | Oxycodone | | Medium | 11/05/20 | Other reaction(s): | | | | | 17 | Other (See | | | | | | Comments) dizziness | + + + + + + | Penicillin G | Anaphylaxis | High | 03/30/20 | | | | | | 10 | | + + + + + + Medications + + + +---------+------+------+-------+ | Medication | Sig | Dispensed | Refills | Star | End | Statu | | | | | | t | Date | s | | | | | | Date | | | + + + +---------+------+------+-------+ | pantoprazole | Take 20 mg by mouth | | 0 | 05 | | Activ | | (PROTONIX) 20 mg | 2 times daily. | | | 320 | | e | | tablet | | | | 10 | | | + + + +---------+------+------+-------+ | ergocalciferol | 1 by mouth daily for | | 0 | 06/2 | | Activ | | (VITAMIN D-2) 50,000 | 7 days, then 1 by | | | 20 | | e | | units capsule | mouth once weekly | | | 10 | | | | | for 12 weeks. | | | | | | + + + +---------+------+------+-------+ | lisinopril | Take 20 mg by mouth | | 0 | | | Activ | | (PRINIVIL, ZESTRIL) | Daily. | | | | | e | | 20 mg tablet | | | | | | | + + + +---------+------+------+-------+ | gabapentin | Take 100 mg by mouth | | 0 | 01/2 | | Activ | | (NEURONTIN) 100 mg | 3 times daily. | | | 08/07 | | e | | capsule | 100mg QAM, 100mg | | | 18 | | | | | with 300mg at | | | | | | | | bedtime | | | | | | + + + +---------+------+------+-------+ | methylphenidate | Take 10 mg by mouth. | | 0 | | | Activ | | (RITALIN) 10 mg | | | | | | e | | tablet | | | | | | | + + + +---------+------+------+-------+ | modafinil | Take 200 mg by | | 0 | 07/2 | | Activ | | (PROVIGIL) 200 mg | mouth. | | | 2/20 | | e | | tablet | | | | 16 | | | + + + +---------+------+------+-------+ | sertraline | Take 100 mg by | | 0 | | | Activ | | (ZOLOFT) 50 mg | mouth. | | | | | e | | tablet | | | | | | | + + + +---------+------+------+-------+ | SUMAtriptan | Take 50 mg by mouth | | 0 | | | Activ | | (IMITREX) 50 mg | as needed. Use as | | | | | e | | tablet | directed | | | | | | + + + +---------+------+------+-------+ | Cyanocobalamin | by Nasal route every | | 0 | | | Activ | | (NASCOBAL) 500 | 7 days. | | | | | e | | MCG/0.1ML SOLN | | | | | | | + + + +---------+------+------+-------+ | calcitRIOL | Take 0.5 mcg by | | 0 | | | Activ | | (ROCALTROL) 0.5 MCG | mouth 2 times daily. | | | | | e | | capsule | | | | | | | + + + +---------+------+------+-------+ | gabapentin | Take 300 mg by mouth | | 0 | | | Activ | | (NEURONTIN) 300 mg | nightly. | | | | | e | | capsule | | | | | | | + + + +---------+------+------+-------+ Active Problems + + + | Problem | Noted Date | + + + | OSTEOPENIA | | + + + | DEPRESSION | | + + + | ANXIETY | | + + + | VAGINITIS, ATROPHIC | | + + + | GASTRIC ULCER | | + + + Social History + +-------+ [...] on file | | + + + + + + + | Job Start Date | Occupation | Industry | + + + + | Not on file | Not on file | Not on file | + + + + + + + + | Travel History | Travel Start | Travel End | + + + + + + | No recent travel history available. | + + Last Filed Vital Signs + + + + | Vital Sign | Reading | Time Taken | + + + + | Blood Pressure | 132/92 | 03/30/2014 0858 PDT | + + + + | Pulse | 82 | 03/30/2014857 PDT | + + + + | Temperature | 36.7 C (98 F) | 03/30/2014857 PDT | + + + + | Respiratory Rate | 18 | 03/30/2014857 PDT | + + + + | Oxygen Saturation | 97% | 03/30/2014857 PDT | + + + + | Inhaled Oxygen | - | - | | Concentration | | | + + + + | Weight | 105.8 kg (233 lb 3.2 | 03/30/2014857 PDT | | | oz) | | + + + + | Height | 175.3 cm (5' 9") | 03/30/2014857 PDT | + + + + | Body Mass Index | 34.44 | 03/30/2014857 PDT | + + + + Plan of Treatment + + + + + | Health Maintenance | Due Date | Last Done | Comments | + + + + + | Hepatitis C | | | | | Screening | 4 | | | + + + + + | Vaccine: | | | | | Dtap/Tdap/Td (1 - | 3 | | | | Tdap) | | | | + + + + + | Cervical Cancer | | | | | Screening (Pap) | 4 | | | + + + + + | Breast Cancer | | | | | Screening (Ages | 4 | | | | 50-74) | | | | + + + + + | Colorectal Cancer | | | | | Screening | 4 | | | | (Colonoscopy) | | | | + + + + + | Vaccine: Zoster (1 | | | | | of 2) | 4 | | | + + + + + | Primary Care | | 03/30/2014 | | | Outreach (Moderate | 5 | | | | Risk) | | | | + + + + + | Vaccine: Influenza | | | | | (Season Ended) | 9 | | | + + + + + Results Not on filefrom Last 3 Months Insurance + +--------+ +--------+ +---------+------+ | Payer | Benefi | Subscriber | Effect | Phone | Address | Type | | | t Plan | ID | charles | | | | | | / | | Dates | | | | | | Group | | | | | | + +--------+ +--------+ +---------+------+ | CIGNA | CIGNA | [id number] | | [phone] | | PPO | | | PPO | | 018-Pr | 1 | | | | | | | esent | | | | + +--------+ +--------+ +---------+------+ | [facility] | PHP | [id number] | 02/17/20 | [phone] | | PPO | | PLAN | PEBB | | 11-Pre | 5 | | | | | STATEW | | sent | | | | | | DHRUV | | | | | | + +--------+ +--------+ +---------+------+ + +--------+ +--------+ + + | Guarantor Name | Accoun | Relation to | Date | Phone | Billing Address | | | t Type | Patient | of | | | | | | | | | | + +--------+ +--------+ + + | Comfort Joe | Person | Self | [birth year] | [address] | | | al/Fam | | 1965 | [phone] | [place], [place] | | | maile | | | 6 (Home) | [address] | + +--------+ +--------+ + + | Comfort Joe | Person | Self | [birth year] | [address] | | | al/Fam | | 1965 | [phone] | [place], [place] | | | maile | | | 6 (Home) | [address] | + +--------+ +--------+ + + Advance Directives Patient has advance care planning documents on file. For more information, please contact:[facility] [place] [address]
--- OUTSIDE RECORDS SUMMARY | ~2019-03-13 | XMS | Clinical Summary ---
Demographics + + + | Address | [address] | | | [place] [address] | + + + | Home Phone | | + + + | Preferred Language | Unknown | + + + | Marital Status | | + + + | Gnosticism Affiliation | Unknown | + + + | Race | White | + + + | Ethnic Group | Not or | + + + Author + + + | Organization | Unknown | + + + | Address | Unknown | + + + | Phone | Unavailable | + + + Support + + + + + | Name | Relationship | Address | Phone | + + + + + | CEZAR CUENCA | ECON | [place] | | + + + + + Care Team Providers + +------+ + | Care Molding Sander Name | Role | Phone | + +------+ + PP | Unavailable | + +------+ + Source Comments DEVAN is fully live on both [facility] and [facility] Allergies Not on File Current Medications Not on file Active Problems Not on file Social History + +-------+ +--------+------+ | Tobacco Use | Types | Packs/Day | Years | Date | | | | | Used | | + +-------+ +--------+------+ | Never Assessed | | | | | + +-------+ +--------+------+ + + + | Sex Assigned at | Date Recorded | | | | + + + | Not on file | | + + + Plan of Treatment + + + + + | Health Maintenance | Due Date | Last Done | Comments | + + + + + | Influenza (Flu) | | | | | vaccination (#1) | 8 | | | + + + + + Results Not on filefrom Last 3 Months"
--- OUTSIDE RECORDS SUMMARY | ~2019-03-13 | XMS | Encounter Summary ---
Demographics + + + | Address | [address] | | | [place] [address] | + + + | Home Phone | | + + + | Preferred Language | Unknown | + + + | Marital Status | | + + + | Worship Affiliation | 1013 | + + + | Race | Unknown | + + + | Ethnic Group | Unknown | + + + Author + + + | Author | [facility] | + + + | Organization | [facility] | + + + | Address | Unknown | + + + | Phone | Unavailable | + + + Support + + + + + | Name | Relationship | Address | Phone | + + + + + | Tacho Joe | ECON | [address] | | | | | [place] | | | | | [address] | | + + + + + Care Team Providers + +------+ + | Care Tongue And Groove Machine Setter Name | Role | Phone | + [...] + + | 01/09/ | Surgery | [facility] | Augustus Olmos, | FINGER - TRIGGER | | 2018 | | [facility] | MD Samreen PERSAUD | RELEASE | | | | OP Samreen PERSAUD | [place] [address] | | | | | [place], [place] | [phone] | | | | | [address] | | | | | | [phone] | | | +--------+---------+ + + + [...] note may be different from the original. [facility] Service: Orthopedic Surgery Brief Post-op Discharge Note [...] MD [address], [address] [place] [id number] Medication List START taking these medications ondansetron [...] Your Medications These medications were sent to [id number] - [place], [place] - [address] [place] [address] ondansetron 4 MG tablet You can get [...]
--- OUTSIDE RECORDS SUMMARY | ~2019-03-13 | XMS | Encounter Summary ---
Demographics + + + | Address | [address] | | | [place] [address] | + + + | Home Phone | | + + + | Preferred Language | Unknown | + + + | Marital Status | | + + + | Episcopal Affiliation | 1013 | + + + | Race | Unknown | + + + | Ethnic Group | Unknown | + + + Author + + + | Author | [facility] | + + + | Organization | [facility] | + + + | Address | Unknown | + + + | Phone | Unavailable | + + + Support + + + + + | Name | Relationship | Address | Phone | + + + + + | Tacho Joe | ECON | [address] | | | | | [place] | | | | | [address] | | + + + + + Care Team Providers + +------+ + | Care Canal Structure Operator Name | Role | Phone | + +------+ + | Madhu Calderon MD | PCP | | + +------+ + Reason for Visit +--------+ + | Reason | Comments | +--------+ + | Other | 's Rehab chart note dated 02/03/2019 | +--------+ + Encounter Details +--------+ + + + + | Date | Type | Department | Care Team | Description | +--------+ + + + + | 02/13/ | Documentati | [facility] | Radha Zimmerman, DEMOLITION CRANE OPERATOR | Other ('s | | 2019 | on Only | [facility] | | Rehab chart note | | | | [facility] | | dated 02/03/2019) | | | | [address] | | | | | | [place] | | | | | | [address] | | | | | | [phone] | | | +--------+ + + + + Social History + +-------+ [...] + + + as of this encounter Plan of Treatment Not on fileas of this encounter Visit Diagnoses Not on filein this encounter"
--- OUTSIDE RECORDS SUMMARY | ~2019-03-13 | XMS | Clinical Summary ---
Demographics + + + | Address | [address] | | | [place] [address] | + + + | Home Phone | | + + + | Preferred Language | Unknown | + + + | Marital Status | | + + + | Bahai Affiliation | 1013 | + + + | Race | Unknown | + + + | Ethnic Group | Unknown | + + + Author + + + | Author | [facility] | + + + | Organization | [facility] | + + + | Address | Unknown | + + + | Phone | Unavailable | + + + Support + + + + + | Name | Relationship | Address | Phone | + + + + + | Tacho Cuenca | E[place] | [address] | | | | | [place] | | | | | [address] | | + + + + + Care Team Providers + +------+ + | Care Tie In Machine Operator Name | Role | Phone | + +------+ + | Madhu Calderon MD | PP | | + +------+ + Allergies + + + + + + | Active Allergy | Reactions | Severity | Noted | Comments | | | | | Date | | + + + + + + | Codeine | Other (See Comments) | Medium | | HIVES, | | | | | | HALLUCINATIONS, | | | | | | VOMIT. | + + + + + + | Hydromorphone | Hives, Nausea and | High | 06/08/20 | | | | Vomiting, Rash | | 16 | | + + + + + + | Morphine | Other (See Comments) | Medium | | HIVES , | | | | | | HALLUCINATION, VOMIT | + + + + + + | Oxycodone | Other (See Comments) | Medium | 11/05/20 | Dizziness, NAUSEA | | | | | 17 | | + + + + + + | Penicillin G | Anaphylaxis | High | 03/30/20 | | | | | | 10 | | + + + + + + Current Medications + + +-------+---------+------+------+-------+ | Prescription | Sig. | Disp. | Refills | Star | End | Statu | | | | | | t | Date | s | | | | | | Date | | | + + +-------+---------+------+------+-------+ | lisinopril | Take 20 mg by mouth. | | | | | Activ | | (ZESTRIL) 20 MG | | | | | | e | | tablet | | | | | | | + + +-------+---------+------+------+-------+ | methylphenidate | Take 10 mg by mouth. | | | | | Activ | | (RITALIN) 10 MG | | | | | | e | | tablet | | | | | | | + + +-------+---------+------+------+-------+ | pantoprazole | Take 40 mg by mouth. | | | | | Activ | | (PROTONIX) 40 MG | | | | | | e | | tablet | | | | | | | + + +-------+---------+------+------+-------+ | sertraline | Take 50 mg by mouth | | | | | Activ | | (ZOLOFT) 50 MG | daily. | | | | | e | | tablet | | | | | | | + + +-------+---------+------+------+-------+ | gabapentin | Take 300 mg by mouth | | | | | Activ | | (NEURONTIN) 300 MG | 3 (three) times | | | | | e | | capsule | daily. | | | | | | + + +-------+---------+------+------+-------+ | diphenhydrAMINE | Take 25 mg by mouth | | | | | Activ | | (BENADRYL) 25 mg | every 6 (six) hours | | | | | e | | capsule | as needed for | | | | | | | | Itching. | | | | | | + + +-------+---------+------+------+-------+ | | Take by mouth. | | | | | Activ | | Ibuprofen-Diphenhydr | | | | | | e | | amine Cit (ADVIL PM | | | | | | | | PO) | | | | | | | + + +-------+---------+------+------+-------+ | | Take 1 tablet by | | | | | Activ | | HYDROcodone-acetamin | mouth every 6 (six) | | | | | e | | ophen (NORCO) 5-325 | hours as needed for | | | | | | | MG per tablet | Pain. | | | | | | + + +-------+---------+------+------+-------+ | calcitRIOL | Take 0.5 mcg by | | | | | Activ | | (ROCALTROL) 0.5 MCG | mouth daily. | | | | | e | | capsule | | | | | | | + + +-------+---------+------+------+-------+ | SUMAtriptan | Take 50 mg by mouth. | | | | | Activ | | (IMITREX) 50 MG | | | | | | e | | tabletIndications: | | | | | | | | Migraine, PRN | | | | | | | + + +-------+---------+------+------+-------+ | gabapentin | Take 100 mg by | | | 11/19 | | Activ | | (NEURONTIN) 100 MG | mouth. | | | 08/07 | | e | | capsule | | | | 18 | | | + + +-------+---------+------+------+-------+ + + +-------+ +------+------+-------+ | Hospital, Clinic, or | Ordered | Route | Frequency | Star | End | Statu | | Other Facility | Dose | | | t | Date | s | | Administered | | | | Date | | | | Medication | | | | | | | + + +-------+ +------+------+-------+ | betamethasone | 1.02 mg | IX | Once | 05/19 | 05/19 | Activ | | acetate-betamethason | | | | 03/07 | 04/06 | e | | e sodium phosphate | | | | 18 | 38 | | | (CELESTONE) | | | | | | | | injection 1.02 | | | | | | | | mgIndications: | | | | | | | | Acquired trigger | | | | | | | | finger of right ring | | | | | | | | finger, Acquired | | | | | | | | trigger finger of | | | | | | | | right middle finger | | | | | | | + + +-------+ +------+------+-------+ | lidocaine 1 % | 1 mL | OTHER | Once | 05/19 | 05/19 | Activ | | injection 1 | | | | 03/07 | 04/06 | e | | mLIndications: | | | | 18 | 38 | | | Acquired trigger | | | | | | | | finger of right ring | | | | | | | | finger, Acquired | | | | | | | | trigger finger of | | | | | | | | right middle finger | | | | | | | + + +-------+ +------+------+-------+ | betamethasone | 0.48 mg | IX | Once | 06/19 | 08/2 | Activ | | acetate-betamethason | | | | /20 | 20 | e | | e sodium phosphate | | | | 18 | 38 | | | (CELESTONE) | | | | | | | | injection 0.48 | | | | | | | | mgIndications: | | | | | | | | Acquired trigger | | | | | | | | finger of right ring | | | | | | | | finger | | | | | | | + + +-------+ +------+------+-------+ | lidocaine 1 % | 1 mL | OTHER | Once | 08/2 | 08/2 | Activ | | injection 1 | | | | 4/20 | 5/20 | e | | mLIndications: | | | | 18 | 38 | | | Acquired trigger | | | | | | | | finger of right ring | | | | | | | | finger | | | | | | | + + +-------+ +------+------+-------+ | lidocaine (PF) 1 % | 1 mL | OTHER | Once | 10/0 | | Activ | | 1 % injection 1 | | | | 2/20 | | e | | mLIndications: Right | | | | 18 | | | | wrist pain | | | | | | | + + +-------+ +------+------+-------+ | betamethasone | 6 mg | IX | Once | 10/0 | | Activ | | acetate-betamethason | | | | 2/20 | | e | | e sodium phosphate | | | | 18 | | | | (CELESTONE) | | | | | | | | injection 6 | | | | | | | | mgIndications: Right | | | | | | | | wrist pain | | | | | | | + + +-------+ +------+------+-------+ Active Problems + + + | Problem | Noted Date | + + + | Right wrist pain | 12/15/2018 | + + + + + | Overview: Added automatically from request for surgery [id number] | + + + + + | Right wrist fracture, open, initial encounter | 10/03/2017 | + + + + + | Overview: Added automatically from request for surgery [id number] | + + + + + | Right wrist fracture | 08/12/2017 | + + + + + | Overview: Added automatically from request for surgery [id number] | + + Encounters +--------+ + + + + | Date | Type | Specialty | Care Team | Description | +--------+ + + + + | 02/13/ | Documentati | | Radha Zimmerman CMA | Other ([facility] | | 2019 | on Only | | | Rehab chart note | | | | | | dated 02/03/2019) | +--------+ + + + + | 01/23/ | Office | | Augustus Olmos, | Right wrist pain | | 2018 | Visit | | MD | (Primary Dx); Right | | | | | | wrist fracture, | | | | | | open, initial | | | | | | encounter; Acquired | | | | | | trigger finger of | | | | | | right middle finger | +--------+ + + + + | 01/09/ | Hospital | | Augustus Olmos, | Right wrist pain; | | 2018 | Encounter | | MD | Right wrist pain; | | | | | | Right wrist | | | | | | fracture, open, | | | | | | initial encounter | +--------+ + + + + +---+ + | | Discharge | | | Summaries | | | - Nickolas, | | | Augustus Wahl, | | | MD - | | | 01/09/2019 | | | 9:21 AM | | | PST | | | Formatting | | | of this | | | note may be | | | different | | | from the | | | original.[facility] | | | Service: | | | Orthopedic | | | SurgeryBrie | | | f Post-op | | | Discharge | | | NoteDISCHAR | | | GE | | | DIAGNOSES:A | | | ctive | | | Problems: | | | Right wrist | | | fracture, | | | open, | | | initial | | | encounter | | | Right wrist | | | | | | painResolve | | | d Problems: | | | * No | | | resolved | | | hospital | | | problems. | | | *Procedures | | | : | | | Procedure(s | | | ) with | | | comments:FI | | | NGER - | | | TRIGGER | | | RELEASE - | | | RT MIDDLE | | | FINGER | | | TRIGGER | | | RELEASEDUPU | | | YTRENS | | | CONTRACTURE | | | RELEASE - | | | Right ring | | | fingerTENOT | | | OSCAR-UPPER | | | EXTREMITY - | | | flexor | | | tendon | | | partial | | | tenotomyThi | | | s patient | | | was | | | transferred | | | to the | | | recovery | | | area | | | post-operat | | | ively and | | | has | | | experienced | | | no | | | difficultie | | | s at the | | | time of my | | | assessment. | | | The | | | patient is | | | anticipated | | | to | | | continue to | | | meet | | | discharge | | | criteria | | | per | | | protocol as | | | assessed | | | by nursing | | | and may be | | | discharged | | | at that | | | time with | | | designated | | | caregiver.D | | | isposition: | | | | | | HomeConditi | | | on: | | | GoodCode | | | Status: | | | PriorFollow | | | | | | up:Madhu | | | C [place], | | | [id number] | | | [address] | | | [place] | | | [place] | | | [address] | | | [phone] | | | Medication | | | List | | | START | | | taking | | | these | | | medications | | | | | | ondansetron | | | 4 MG | | | tabletQTY: | | | 20 | | | tabletRefil | | | ls: | | | 0Commonly | | | known as: | | | ZOFRANTake | | | 1 tablet by | | | mouth 3 | | | (three) | | | times daily | | | as needed | | | for Nausea | | | for up to 7 | | | days. | | | CHANGE how | | | you take | | | these | | | medications | | | * | | | HYDROcodone | | | -acetaminop | | | hen 5-325 | | | MG per | | | tabletQTY: | | | 15 | | | tabletRefil | | | ls: | | | 0Commonly | | | known as: | | | NORCOTake 1 | | | tablet by | | | mouth every | | | 6 (six) | | | hours as | | | needed for | | | Pain for up | | | to 7 | | | days.What | | | changed: | | | You were | | | already | | | taking a | | | medication | | | with the | | | same name, | | | and this | | | prescriptio | | | n was | | | added. Make | | | sure you | | | understand | | | how and | | | when to | | | take each. | | | * | | | HYDROcodone | | | -acetaminop | | | hen 5-325 | | | MG per | | | tabletRefil | | | ls: | | | 0Commonly | | | known as: | | | NORCOWhat | | | changed: | | | Another | | | medication | | | with the | | | same name | | | was added. | | | Make sure | | | you | | | understand | | | how and | | | when to | | | take each. | | | * This | | | list has 2 | | | medication( | | | s) that are | | | the same | | | as other | | | medications | | | prescribed | | | for you. | | | Read the | | | directions | | | carefully, | | | and ask | | | your doctor | | | or other | | | care | | | provider to | | | review | | | them with | | | you. | | | CONTINUE | | | taking | | | these | | | medications | | | ADVIL PM | | | PORefills: | | | 0 | | | calcitRIOL | | | 0.5 MCG | | | capsuleRefi | | | lls: | | | 0Commonly | | | known as: | | | ROCALTROL | | | diphenhydrA | | | MINE 25 mg | | | capsuleRefi | | | lls: | | | 0Commonly | | | known as: | | | BENADRYL * | | | gabapentin | | | 100 MG | | | capsuleRefi | | | lls: | | | 0Commonly | | | known as: | | | NEURONTIN * | | | gabapentin | | | 300 MG | | | capsuleRefi | | | lls: | | | 0Commonly | | | known as: | | | NEURONTIN | | | lisinopril | | | 20 MG | | | tabletRefil | | | ls: | | | 0Commonly | | | known as: | | | ZESTRIL | | | methylpheni | | | date 10 MG | | | tabletRefil | | | ls: | | | 0Commonly | | | known as: | | | RITALIN | | | pantoprazol | | | e 40 MG | | | tabletRefil | | | ls: | | | 0Commonly | | | known as: | | | PROTONIX | | | sertraline | | | 50 MG | | | tabletRefil | | | ls: | | | 0Commonly | | | known as: | | | ZOLOFT | | | SUMAtriptan | | | 50 MG | | | tabletRefil | | | ls: | | | 0Commonly | | | known as: | | | IMITREX * | | | This list | | | has 2 | | | medication( | | | s) that are | | | the same | | | as other | | | medications | | | prescribed | | | for you. | | | Read the | | | directions | | | carefully, | | | and ask | | | your doctor | | | or other | | | care | | | provider to | | | review | | | them with | | | you. You | | | might also | | | be taking | | | other | | | medications | | | not listed | | | above. If | | | you have | | | questions | | | about any | | | of your | | | other | | | medications | | | , talk to | | | the person | | | who | | | prescribed | | | them or | | | your | | | Primary | | | Care | | | Provider. | | | Where to | | | Get Your | | | Medications | | | These | | | medications | | | were sent | | | to [facility] | | | [facility] | | | #[phone] - | | | [place], | | | [place] - [address], | | | [place] | | | [place] [address] | | | Phone: | | | [phone] | | | 9 | | | ondansetron | | | 4 MG | | | tablet You | | | can get | | | these | | | medications | | | from any | | | pharmacy | | | Bring a | | | paper | | | prescriptio | | | n for each | | | of these | | | medications | | | | | | HYDROcodone | | | -acetaminop | | | hen 5-325 | | | MG per | | | tablet | | | Augustus Wahl | | | Nickolas, | | | MD01/09/2019 | +---+ + +--------+ +---+ + + | 01/09/ | Procedure | | | | | 2019 | Pass | | | | +--------+ +---+ + + | 01/09/ | Surgery | | Augustus Olmos, | FINGER - TRIGGER | | 2018 | | | MD | RELEASE | +--------+ +---+ + + | 01/05/ | Anesthesia | | Noe Hansen DO | | | 2018 | Event | | | | +--------+ +---+ + + | 12/15/ | Hospital | | | | | 2019 | Encounter | | | | +--------+ +---+ + + | 12/15/ | Office | | Augustus Olmos, | Right wrist pain | | 2018 | Visit | | MD | (Primary Dx); Right | | | | | | wrist fracture, | | | | | | open, initial | | | | | | encounter; Acquired | | | | | | trigger finger of | | | | | | right middle finger | +--------+ +---+ + + from Last 3 Months Family History + + +------+ + | Medical History | Relation | Name | Comments | + + +------+ + | Diabetes type II | Father | | | + + +------+ + | Hypertension | Father | | | + + +------+ + + +------+--------+ + | Relation | Name | Status | Comments | + +------+--------+ + | Father | | | | + +------+--------+ + Social History + +-------+ +--------+------+ | [...] on file | | + + + Last Filed Vital Signs + + + + | Vital Sign | Reading | Time Taken | + + + + | Blood Pressure | 149/80 | 01/09/2019 9:30 AM PST | + + + + | Pulse | 77 | 01/23/2019 1:10 PM PST | + + + + | Temperature | 36.6 C (97.8 F) | 01/09/2019 9:15 AM PST | + + + + | Respiratory Rate | 16 | 01/09/2019 9:30 AM PST | + + + + | Oxygen Saturation | 97% | 01/23/2019 1:10 PM PST | + + + + | Inhaled Oxygen | - | - | | Concentration | | | + + + + | Weight | 91.6 kg (202 lb) | 01/23/2019 1:10 PM PST | + + + + | Height | 175.3 cm (5' 9") | 01/23/2019 1:10 PM PST | + + + + | Body Mass Index | 29.83 | 01/23/2019 1:10 PM PST | + + + + Plan of [...] Screening | 4 | | | | (Mammogram) | | | | + + + + + | Colon Cancer | | | | | Screening [...] | | + + + + + Implants + +------+--------+ +--------+--------+--------+ | Implanted | Type | Area | Manufacture | Device | Expira | Model | | | | | r | | tion | / | | | | | | Identi | Date | Serial | | | | | | fier | | / Lot | + +------+--------+ +--------+--------+--------+ | Plate Lcp [id number] Strt Wrst | | Right: | SYNTHES - | | | SD242. | | - SnaImplanted: Qty: 1 on | | Wrist | SYNT | | | 003 | | 08/13/2017 by Augustus Olmos | | | | | | /NA | | MD Vish | | | | | | /NA | + +------+--------+ +--------+--------+--------+ | Screw Jorge Strdr V/A Ss 2.4x18 | | Right: | SYNTHES - | | | 02.210 | | - SnaImplanted: Qty: 1 on | | Wrist | SYNT | | | .118 | | 08/13/2017 by Augustus Olmos | | | | | | /NA | | MD Vish | | | | | | /NA | + +------+--------+ +--------+--------+--------+ | Screw Jorge Strdr V/A Ss 2.4x12 | | Right: | [facility] - | | | 02.210 | | - SnaImplanted: Qty: 1 on | | Wrist | SYNT | | | .112 | | 08/13/2017 by Augustus lOmos | | | | | | /NA | | MD Vish | | | | | | /NA | + +------+--------+ +--------+--------+--------+ | Screw Crtx Slf-Tp Strdr | | Right: | [facility] - | | | 201.76 | | 2.4x12 - SnaImplanted: Qty: 2 | | Wrist | SYNT | | | 2 /NA | | on 08/13/2017 by Nickolas, | | | | | | /NA | | Augustus Wahl MD | | | | | | | + +------+--------+ +--------+--------+--------+ | Screw Crtx Slf-Tp Strdr | | Right: | SYNTHES - | | | 201.76 | | 2.4x14 - SnaImplanted: Qty: 1 | | Wrist | SYNT | | | 4 /NA | | on 08/13/2017 by Nickolas, | | | | | | /NA | | Augustus Wahl MD | | | | | | | + +------+--------+ +--------+--------+--------+ | Screw Crtx Slf-Tp Strdr | | Right: | SYNTHES - | | | 201.76 | | 2.4x16 - SnaImplanted: Qty: 1 | | Wrist | SYNT | | | 6 /NA | | on 08/13/2017 by Nickolas, | | | | | | /NA | | Augustus Wahl MD | | | | | | | + +------+--------+ +--------+--------+--------+ | KwireImplanted: Qty: 2 on | | Right: | DEPUY | | | NA / | | 08/13/2017 by Augustus Olmos | | Wrist | | | | NA / | | MD Vish | | | | | | NA | + +------+--------+ +--------+--------+--------+ Procedures + +--------+ + + + | [...] | | | E | +---+--------+ + +--------+ + + + | XR WRIST LIMITED | Routin | 12/15/2018 | Right wrist pain | Results for this | | RIGHT | e | 8:04 AM | Right wrist | procedure are in the | | | | PST | fracture, open, | results section. | | | | | initial encounter | | + +--------+ + + + from Last 3 Months Results X-ray wrist limited right (12/15/2018 8:04 [...] | + + + + + | [facility] | [address] | [place] [address] | | + + + + + from Last 3 Months Insurance + +--------+ +------+-------+---------+ | Payer | Benefi | Subscriber | Type | Phone | Address | | | t Plan | ID | | | | | | / | | | | | | | Group | | | | | + +--------+ +------+-------+---------+ | [employer] | [employer]DS | [id number] | | | | | | HEALTH | | | | | | | PLAN | | | | | + +--------+ +------+-------+---------+ | [employer] | [employer] | [id number] | | | | | | WORK | | | | | + +--------+ +------+-------+---------+ + +--------+ +--------+ + + | Guarantor Name | Accoun | Relation to | Date | Phone | Billing Address | | | t Type | Patient | of | | | | | | | | | | + +--------+ +--------+ + + | THOMAS CUENCA | Person | Self [birth year] | Home: | [address] | | | al/Fam | | [phone] | [phone] [place] | | | [place] | | | [phone] | [phone] | + +--------+ +--------+ + +
--- OUTSIDE RECORDS SUMMARY | ~2019-03-13 | XMS | Encounter Summary ---
Demographics + + + | Address | [address] | | | [place] [address] | + + + | Home Phone | | + + + | Preferred Language | Unknown | + + + | Marital Status | | + + + | Amish Affiliation | 1013 | + + + | Race | Unknown | + + + | Ethnic Group | Unknown | + + + Author + + + | Author | [facility] | + + + | Organization | [facility] | + + + | Address | Unknown | + + + | Phone | Unavailable | + + + Support + + + + + | Name | Relationship | Address | Phone | + + + + + | Tacho Joe | ECON | [address] | | | | | [place] | | | | | [address] | | + + + + + Care Team Providers + +------+ + | Care Corporate Communications Intern Name | Role | Phone | + +------+ + | Souleymane Calderon MD | PCP | | + +------+ + Reason for Referral Occupational Therapy (Routine) + + + + + + + | Status | Reason | Specialty | Diagnoses / | Referred By | Referred To | | | | | Procedures | Contact | Contact | + + + + + + + | Authorized | Specialty | Occupational | Diagnoses | Nickolas, | | | | Services | Therapy | Right wrist | Augustus Wahl MD | | | | Required | | pain Right | 1351 | | | | | | wrist | [address] | | | | | | fracture, | [place] | | | | | | open, | [address] | | | | | | initial | Phone: | | | | | | encounter | [phone] | | | | | | Acquired | Fax: | | | | | | trigger | [phone] | | | | | | finger of | | | | | | | right middle | | | | | | | finger | | | + + + + + + + Reason for Visit + + + | Reason | Comments | + + + | Post-op Exam | Right wrist pain | + + [...] Surgery | RIGHT WRIST | Referred | [facility] | | | | | Procedures | Phone: | Samreen Bill | | | | | ORTHO | [phone] | [place], | | | | | FOLLOW UP | Fax: | [place] | | | | | | [phone] | [address] | | | | | | | Phone: | | | | | | | [phone] | | | | | | | Fax: | | | | | | | [phone] | + +--------+ + + + + Encounter Details +--------+---------+ + + + | Date | Type | Department | Care Team | Description | +--------+---------+ + + + | 01/23/ | Office | [facility] | Augustus Olmos, | Right wrist pain | | 2019 | Visit | [facility] | MD Samreen PERSAUD | (Primary Dx); Right | | | | MEDIC[facility] | [place] [address] | wrist fracture, | | | | Samreen Persaud | [phone] | open, initial | | | | [place] | | encounter; Acquired | | | | [address] | | trigger finger of | | | | [phone] | | right middle finger | +--------+---------+ [...] + + + | Blood Pressure | - | - | + + + + | Pulse [...] PM PST | + + + + in this encounter Progress Notes Augustus Olmos MD - 01/23/2019 1:15 PM PSTFormatting of this note may be different from the original. [facility]: Orthopedic Surgery Patient Name:Comfort Joe AGE: 53 y.o. :1965 CHIEF COMPLAINT: Post-op Exam (Right wrist pain) HPI HISTORY OF PRESENT ILLNESS Patient overall doing well. No complications noted REVIEW OF SYSTEMS Review of Systems Past Medical History Diagnosis [...] TUNNEL RELEASE; Surgeon: Augustus Olmos MD; Location: [facility]; Service: Orthopedics;; SECTION 1991 CHOLECYSTECTOMY 1993 DUPUYTREN CONTRACTURE RELEASE Right 01/09/2019 Procedure: DUPUYTRENS CONTRACTURE RELEASE; Surgeon: Augustus Olmos MD; Location: [facility]; Service: Orthopedics; Laterality: Right; Right ring finger ELBOW SURGERY Left 2013 GASTRIC BYPASS 2009 HARDWARE PRESENT SCREWS IN LEFT LEG HARDWARE REMOVAL Right 11/12/2017 Procedure: HAND - HARDWARE REMOVAL; Surgeon: Augustus Olmos MD; Location: [facility]; Service: Orthopedics; Laterality: Right; HYSTERECTOMY 1992 ORIF TIBIA & FIBULA FRACTURES Left 2008 STELLATE GANGLION BLOCK Right 05/12/2018 STELLATE GANGLION BLOCK Right 05/26/2018 STELLATE GANGLION BLOCK Right 06/02/2018 TENOTOMY Right 01/09/2019 Procedure: TENOTOMY-UPPER EXTREMITY; Surgeon: Augustus Olmos MD; Location: [facility]; Service: Orthopedics; Laterality: Right; flexor tendon partial tenotomy TRIGGER FINGER RELEASE Right 01/09/2019 Procedure: FINGER - TRIGGER RELEASE; Surgeon: Augustus Olmos MD; Location: [facility]; Service: Orthopedics; Laterality: Right; RT MIDDLE FINGER TRIGGER RELEASE WRIST SURGERY Right 08/13/2017 Procedure: WRIST - ORIF; Surgeon: Augustus Olmos MD; Location: [facility]; Service : Orthopedics; Laterality: Right; RT WRIST [...] 0.5 MCG capsule Take 0.5 mcg by mouth daily. Historical Provider diphenhydrAMINE (BENADRYL) 25 mg capsule [...] PM PO) Take by mouth. Historical Provider lisinopril (ZESTRIL) 20 MG tablet Take 20 mg by mouth. Historical Provider methylphenidate (RITALIN) 10 MG tablet Take 10 mg by mouth. Historical Provider pantoprazole (PROTONIX) 40 MG tablet Take 40 mg by mouth. Historical Provider sertraline (ZOLOFT) 50 MG tablet Take 50 mg by mouth daily. Historical Provider SUMAtriptan (IMITREX) 50 MG tablet [...] narrative on file PHYSICAL EXAM Vital Signs: Pulse 77 | Ht 1.753 m (5' 9") | Wt 91.6 kg (202 lb) | SpO2 97% | BMI 29.83 kg/m Physical Exam Ortho Exam Wound healed Neurovascularly intact, Motor and sensation grossly intact Brisk cap refill 2+ pulses No signs of complication PROBLEM LIST Encounter Diagnoses Name Primary? Right wrist pain Yes Right wrist fracture, open, initial encounter Acquired trigger finger of right middle finger ASSESSMENT & PLAN Therapy for working on ROM Gradual return to activity Scar tissue massage All questions answered Return in 2-3 months Primary Care Physician: SOULEYMANE Olmos MD This document has been prepared with [email or web address] voice recognition system. The possibility of "s ound alike" human resources technician errors, and additions, or deletions may occur. If there is any que stion with respect to clarity of the message being conveyed, please contact me directly for clarification. in this encounter Plan of Treatment + +--------+ + + | Name | Priori | Associated Diagnoses | Order Schedule | | | ty | | | + +--------+ + + | Ambulatory referral to | Routin | Right wrist pain | Ordered: 01/23/2019 | | Occupational Therapy, Eval and | e | Right wrist | | | Treat | | fracture, open, | | | | | initial encounter | | | | | Acquired trigger | | | | | finger of right | | | | | middle finger | | + +--------+ + + as of this encounter Visit Diagnoses + + | Diagnosis | + + | Right wrist pain - Primary | + + | Pain in joint, forearm | + + | Right wrist fracture, open, initial encounter | + + | Acquired trigger finger of right middle finger | + +
--- OUTSIDE RECORDS SUMMARY | ~2019-03-13 | XMS | Encounter Summary ---
Demographics + + + | Address | [address] | | | [place] [address] | + + + | Home Phone | | + + + | Preferred Language | Unknown | + + + | Marital Status | | + + + | Caodaism Affiliation | 1013 | + + + | Race | Unknown | + + + | Ethnic Group | Unknown | + + + Author + + + | Author | [facility] | + + + | Organization | [facility] | + + + | Address | Unknown | + + + | Phone | Unavailable | + + + Support + + + + + | Name | Relationship | Address | Phone | + + + + + | Tacho Joe | ECON | [address] | | | | | [place] | | | | | [address] | | + + + + + Care Team Providers + +------+ + | Care Supervisor Public Message Service Name | Role | Phone | + +------+ + | Madhu Calderon MD | PCP | | + +------+ + Encounter Details +--------+ + + + + | Date | Type | Department | Care Team | Description | +--------+ + + + + | 12/15/ | Hospital | [facility] | | | | 2019 | Encounter | SURGERY CENTER | | | | | | PREADMISSION | | | | | | SERVICES [address] | | | | | | [address] [facility], | | | | | | [place] [address] | | | | | | [phone] | | | +--------+ + + + [...] | 92.5 kg (204 lb) | 12/15/2018 8:49 AM PST | + + + + | Height | 175.3 cm (5' 9") | 12/15/2018 8:49 AM PST | + + + + | Body Mass Index | 30.13 | 12/15/2018 8:49 AM PST | + + + + in this encounter Medications at Time of [...] encounter Visit Diagnoses Not on filein this encounter
--- OUTSIDE RECORDS SUMMARY | ~2019-03-13 | XMS | Encounter Summary ---
Demographics + + + | Address | [address] | | | [place] [address] | + + + | Home Phone | | + + + | Preferred Language | Unknown | + + + | Marital Status | | + + + | Uatsdin Affiliation | 1013 | + + + | Race | Unknown | + + + | Ethnic Group | Unknown | + + + Author + + + | Author | [facility] | + + + | Organization | [facility] | + + + | Address | Unknown | + + + | Phone | Unavailable | + + + Support + + + + + | Name | Relationship | Address | Phone | + + + + + | Tacho Joe | ECON | [address] | | | | | [place] | | | | | [address] | | + + + + + Care Team Providers + +------+ + | Care Driver Guard Name | Role | Phone | + +------+ + | Madhu Calderon MD | PCP | | + +------+ + Encounter Details +--------+ + + + + | Date | Type | Department | Care Team | Description | +--------+ + + + + | 12/15/ | Hospital | [facility] | | | | 2019 | Encounter | SURGERY CENTER | | | | | | PREADMISSION | | | | | | SERVICES [address] | | | | | | [address] [facility], | | | | | | [place] [address] | | | | | | [phone] | | | +--------+ + + + [...]
--- OUTSIDE RECORDS SUMMARY | ~2019-03-13 | XMS | Encounter Summary ---
Demographics + + + | Address | [address] | | | [place] [address] | + + + | Home Phone | | + + + | Preferred Language | Unknown | + + + | Marital Status | | + + + | Latter-Day Affiliation | 1013 | + + + | Race | Unknown | + + + | Ethnic Group | Unknown | + + + Author + + + | Author | [facility] | + + + | Organization | [facility] | + + + | Address | Unknown | + + + | Phone | Unavailable | + + + Support + + + + + | Name | Relationship | Address | Phone | + + + + + | Tacho Joe | ECON | [address] | | | | | [place] | | | | | [address] | | + + + + + Care Team Providers + +------+ + | Care Catalyst Supervisor Name | Role | Phone | + [...] | [facility] | Radha Zimmerman, SPORTS PHYSIOLOGIST | Other ('s | | 2019 | on Only | [facility]O [facility] | | Rehab chart note | | | | [facility] | | dated 02/03/2019) | | | | [address] | | | | | | [place] | | | | | | [address] | | | | | | [phone] | | | +--------+ + + + [...]
--- OUTSIDE RECORDS SUMMARY | ~2019-03-13 | XMS | Encounter Summary ---
Demographics + + + | Address | [address] | | | [place] [address] | + + + | Home Phone | | + + + | Preferred Language | Unknown | + + + | Marital Status | | + + + | Congregation Affiliation | 1013 | + + + | Race | Unknown | + + + | Ethnic Group | Unknown | + + + Author + + + | Author | [facility] | + + + | Organization | [facility] | + + + | Address | Unknown | + + + | Phone | Unavailable | + + + Support + + + + + | Name | Relationship | Address | Phone | + + + + + | Tacho Joe | ECON | [address] | | | | | [place] | | | | | [address] | | + + + + + Care Team Providers + +------+ + | Care Director Of Investigations Name | Role | Phone | + +------+ + | Madhu Calderon MD | PCP | | + +------+ + Encounter Details +--------+ + + + + | Date | Type | Department | Care Team | Description | +--------+ + + + + | 01/09/ | Anesthesia | [facility] | Noe Hansen, | | | 2019 | Event | [facility] | [address] | | | | | [address] | [place] [address] | | | | | [place], [place] | [phone] | | | | | [address] | | | | | | [phone] | | | +--------+ + + + + Anesthesia Record + + + + + | Procedure Name | Responsible | Anesthesia Start | Anesthesia Stop Time | | | Anesthesiologist | Time | | + + + + + | FINGER - TRIGGER | Noe Hansen DO | 01/09/1948 | 01/09/19910 | | RELEASE (Right | | | | | Finger) | | | | + + + + + +----+---+ + + | Da | T | Event | Comment | | te | i | | | | | m | | | | | e | | | +----+---+ + + | 02 | 0 | An Start | Pre-anesthetic vital signs reassessed. | | /2 | 8 | | | | 2/ | 4 | | | | 20 | 7 | | | | 19 | | | | +----+---+ + + | | 0 | Antibiotic | | | | 8 | Given | | | | 4 | | | | | 7 | | | +----+---+ + + | | 0 | An Tourn | Right forearm 250 mmHg | | | 8 | Inflated | | | | 5 | | | | | 8 | | | +----+---+ + + | | 0 | Quick Note | Incision 0859 | | | 8 | | | | | 5 | | | | | 9 | | | +----+---+ + + | | 0 | An Tourn | TT = 11 min | | | 9 | Deflated | | | | 0 | | | | | 9 | | | +----+---+ + + | | 0 | Quick Note | Surgery stop | | | 9 | | | | | 0 | | | | | 9 | | | +----+---+ + + | | 0 | An Stop | | | | 9 | | | | | 1 | | | | | 1 | | | +----+---+ + + +------+ | Meds | +------+ + +--------+ | Name | Total | + +--------+ | lidocaine 2 % | 60 mg | + +--------+ | propofol | 200 mg | + +--------+ | clindamycin (CLEOCIN) IVPB 600 mg | 600 mg | + +--------+ | lactated ringers infusion | 100 mL | + +--------+ +------+ | Name | +------+ | O2 | +------+ + + | No blood administrations on file. | + + +--------+ + + + | Type | Details | Placement | Removal | +--------+ + + + | Wound | 08/13/17; 1042; Incision; Hand; | 08/13/17 1042 by | | | | | Carmita Toth, | | | | | RN | | +--------+ + + + | Wound | 11/12/17; 1619; Incision; Arm; | 11/12/17 162 by | | | | Right | Shaye Servin, | | | | | RN | | +--------+ + + + | Periph | Placement Date: 01/09/19; | 01/09/19824 by | 01/09/19 0935 by Toma | | eral | Placement Time: 824; Removal | Navya Lemos RN | H YENIFER Ocampo | | IV | Date: 01/09/19; Removal Time: | | | | | 934; Size (Gauge): 22 G; | | | | | Orientation: Right, Left; | | | | | Location: Hand; Site Prep: | | | | | Alcohol; Insertion Attempts: 1 | | | +--------+ + + + in this encounter Social History + +-------+ +--------+------+ | Tobacco [...] this encounter Last Filed Vital Signs + +---------+ + | Vital Sign | Reading | Time Taken | + +---------+ + | Blood Pressure | - | - | + +---------+ + | Pulse | - | - | + +---------+ + | Temperature | - | - | + +---------+ + | Respiratory Rate | 16 | 01/09/2019 9:10 AM PST | + +---------+ + | Oxygen Saturation | - | - | + +---------+ + | Inhaled Oxygen | - | - | | Concentration | | | + +---------+ + | Weight | - | - | + +---------+ + | Height | - | - | + +---------+ + | Body Mass Index | - | - | + +---------+ + in this encounter Plan of Treatment Not on fileas of this encounter Visit Diagnoses Not on filein this encounter Administered Medications + +--------+ +--------+------+------+ | Medication Order | MAR | Action | Dose | Rate | Site | | | Action | Date | | | | + +--------+ +--------+------+------+ | clindamycin (CLEOCIN) IVPB 600 | Given | | 600 mg | | | | mg 600 mg, Intravenous, | | 9 08:47 | | | | | Administer over 30 Minutes, Once, | | PST | | | | | 01/09/19 at 0830, For 1 dose, | | | | | | | Pre-op | | | | | | + +--------+ +--------+------+------+ +---+---+ | | | +---+---+ + +-------+ +-------+---+---+ | lidocaine 2 % (MDV) 2 % | Given | | 60 mg | | | | injection PRN, Starting Fri | | 9 08:52 | | | | | 01/09/19 at 52, Anesthesia | | PST | | | | | Intra-op | | | | | | + +-------+ +-------+---+---+ +---+---+ | | | +---+---+ + +-------+ +--------+---+---+ | propofol (DIPRIVAN) injection | Given | | 150 mg | | | | Intravenous, PRN, Starting Fri | | 9 08:52 | | | | | 01/09/19 at 0852, Anesthesia | | PST | | | | | Intra-op | | | | | | + +-------+ +--------+---+---+ +-------+ +-------+---+---+ | Given | | 50 mg | | | | | 9 09:00 | | | | | | PST | | | | +-------+ +-------+---+---+ +---+---+ | | | +---+---+ in this encounter"
--- OUTSIDE RECORDS SUMMARY | ~2019-03-13 | XMS | Encounter Summary ---
Demographics + + + | Address | [address] | | | [place] [address] | + + + | Home Phone | | + + + | Preferred Language | Unknown | + + + | Marital Status | | + + + | Amish Affiliation | 1013 | + + + | Race | Unknown | + + + | Ethnic Group | Unknown | + + + Author + + + | Author | [facility] | + + + | Organization | [facility] | + + + | Address | Unknown | + + + | Phone | Unavailable | + + + Support + + + + + | Name | Relationship | Address | Phone | + + + + + | Tacho Joe | ECON | [address] | | | | | [place] | | | | | [address] | | + + + + + Care Team Providers + +------+ + | Care Lace Cutter Name | Role | Phone | + [...] | | | | | open, | [address] | | | | | | initial | Phone: | | | | | | encounter | [phone] | | | | | | Acquired | Fax: | | | | | | trigger | [phone] | | | | | | finger [...] Surgery | RIGHT WRIST | Referred | [facility] | | | | | Procedures | Phone: | Samreen Bill | | | | | ORTHO | [phone] | [place], | | | | | FOLLOW UP | Fax: | [place] | | | | | | [phone] | [address] | | | | | | | Phone: | | | | | | | [phone] | | | | | | | Fax: | | | | | | | [phone] | + +--------+ + + + + Encounter Details +--------+---------+ + + + | Date | Type | Department | Care Team | Description | +--------+---------+ + + + | 01/23/ | Office | [facility] | Augustus Olmos, | Right wrist pain | | 2019 | Visit | [facility] | MD Samreen PERSAUD | (Primary Dx); Right | | | | [facility]IC[facility] | [place] [address] | wrist fracture, | | | | Samreen Persaud | [phone] | open, initial | | | | [place] | | encounter; Acquired | | | | [address] | | trigger finger of | | | | [phone] | | right middle finger | +--------+---------+ [...] note may be different from the original. [facility]: Orthopedic Surgery Patient Name:Comfort Joe [...] TUNNEL RELEASE; Surgeon: Augustus Olmos MD; Location: [facility]; Service: Orthopedics;; SECTION 1991 CHOLECYSTECTOMY 1993 DUPUYTREN CONTRACTURE RELEASE Right 01/09/2019 Procedure: DUPUYTRENS CONTRACTURE RELEASE; Surgeon: Augustus Olmos MD; Location: [facility]; Service: Orthopedics; Laterality: Right; Right ring finger ELBOW SURGERY Left 2013 GASTRIC BYPASS 2009 HARDWARE PRESENT SCREWS IN LEFT LEG HARDWARE REMOVAL Right 11/12/2017 Procedure: HAND - HARDWARE REMOVAL; Surgeon: Augustus Olmos MD; Location: [facility]; Service: Orthopedics; Laterality: Right; HYSTERECTOMY 1992 ORIF TIBIA & FIBULA FRACTURES Left 2008 STELLATE GANGLION BLOCK Right 05/12/2018 STELLATE GANGLION BLOCK Right 05/26/2018 STELLATE GANGLION BLOCK Right 06/02/2018 TENOTOMY Right 01/09/2019 Procedure: TENOTOMY-UPPER EXTREMITY; Surgeon: Augustus Olmos MD; Location: [facility]; Service: Orthopedics; Laterality: Right; flexor tendon partial tenotomy TRIGGER FINGER RELEASE Right 01/09/2019 Procedure: FINGER - TRIGGER RELEASE; Surgeon: Augustus Olmos MD; Location: [facility]; Service: Orthopedics; Laterality: Right; RT MIDDLE FINGER TRIGGER RELEASE WRIST SURGERY Right 08/13/2017 Procedure: WRIST - ORIF; Surgeon: Augustus Olmos MD; Location: [facility]; Service : Orthopedics; Laterality: Right; RT WRIST [...] MD This document has been prepared with [employer] voice recognition system. The possibility of "s ound alike" color making supervisor errors, and additions, or deletions may occur. [...]
--- OUTSIDE RECORDS SUMMARY | ~2019-03-13 | XMS | Clinical Summary ---
Demographics + + + | Address | [address] | | | [place] [address] | + + + | Home Phone | | + + + | Preferred Language | Unknown | + + + | Marital Status | | + + + | Advent Affiliation | 1013 | + + + | Race | Unknown | + + + | Ethnic Group | Unknown | + + + Author + + + | Author | [facility] | | | and [place] | + + + | Organization | [facility] | | | and [...] + | Tacho Joe | ECON | [address] | | | | | [place] | | | | | [address] | | + + + + + Care Team Providers + +------+ + | Care Swimming Pool Maintenance Name | Role | Phone | + [...] +--------+ +---------+------+ | CIGNA | CIGNA | [id number] | | [phone] | | PPO | | | PPO | | [id number] | 1 | | | | | | | esent | | | | + +--------+ +--------+ +---------+------+ | [facility] | PHP | [id number] | 02/17/20 | [phone] | | PPO | | PLAN | [...] Person | Self | [birth year] | [address] | | | al/Fam | | 1965 | [phone] | [place], [place] | | | [place]ile | | | 6 (Home) | [address] | + +--------+ +--------+ + + | Comfort Joe | Person | Self | [birth year] | [address] | | | al/Fam | | 1965 | [phone] | [place], [place] | | | maile | | | 6 (Home) | [address] | + +--------+ +--------+ + + Advance Directives Patient has advance care planning documents on file. For more information, please contact:[facility] [place] [address]
--- OUTSIDE RECORDS SUMMARY | ~2019-03-13 | XMS | Encounter Summary ---
Demographics + + + | Address | [address] | | | [place] [address] | + + + | Home Phone | | + + + | Preferred Language | Unknown | + + + | Marital Status | | + + + | Hindu Affiliation | 1013 | + + + | Race | Unknown | + + + | Ethnic Group | Unknown | + + + Author + + + | Author | [facility] | + + + | Organization | [facility] | + + + | Address | Unknown | + + + | Phone | Unavailable | + + + Support + + + + + | Name | Relationship | Address | Phone | + + + + + | Tacho Joe | ECON | [address] | | | | | [place] | | | | | [address] | | + + + + + Care Team Providers + +------+ + | Care Corrections Caseworker Name | Role | Phone | + [...] +--------+--------+ + + + + Encounter Details +--------+ + + + + | Date | Type | Department | Care Team | Description | +--------+ + + + + | 01/09/ | Hospital | [facility] | Augustus Olmos, | Right wrist pain; | | 2018 | Encounter | [facility] | MD Samreen PERSAUD | Right wrist pain; | | | | [address] | [place] [address] | Right wrist | | | | [place], [place] | [phone] | fracture, open, | | | | [address] | | initial encounter | | | | [phone] | | | +--------+ + + + [...] note may be different from the original. [facility] Service: Orthopedic Surgery Brief Post-op Discharge Note [...] Follow up: Madhu Calderon MD [address] [place] [id number] Medication List START taking these medications ondansetron [...] Your Medications These medications were sent to [facility] - [place], [place] - [address] [place] [address] ondansetron 4 MG tablet You can get [...] | | | + +--------+ +-------+------+------+ | ketorolac (TORADOL) injection | Given | | 30 mg | | | | 30 mg 30 mg, Intravenous, Once, | | 9 09:21 | | | | | 01/09/19 at 1000, For 1 dose, | | PST | | | | | PACU | | | | | | + +--------+ +-------+------+------+ +---+---+ | | | +---+---+ + +---------+ [...] | | | | | Anxiety, Starting 01/09/19 at | | PST | | | [...] | | | | | Vomiting, Starting 01/09/19 at | | | | | | | 0909, For 1 dose, PACU | | | | | | + +-------+ +------+---+---+ +---+---+ | | | +---+---+ in this encounter
--- OUTSIDE RECORDS SUMMARY | ~2019-03-13 | XMS | Encounter Summary ---
Demographics + + + | Address | [address] | | | [place] [address] | + + + | Home Phone | | + + + | Preferred Language | Unknown | + + + | Marital Status | | + + + | Mu-Ism Affiliation | 1013 | + + + | Race | Unknown | + + + | Ethnic Group | Unknown | + + + Author + + + | Author | [facility] | + + + | Organization | [facility] | + + + | Address | Unknown | + + + | Phone | Unavailable | + + + Support + + + + + | Name | Relationship | Address | Phone | + + + + + | Tacho Joe | ECON | [address] | | | | | [place] | | | | | [address] | | + + + + + Care Team Providers + +------+ + | Care Manager Oracle Name | Role | Phone | + [...] Surgery | RIGHT WRIST | Referred | [place] | | | | | Procedures | Phone: | Samreen Castañeda | | | | | ORTHO | [phone] | [facility], | | | | | FOLLOW UP | Fax: | [place] | | | | | | [phone] | [address] | | | | | | | Phone: | | | | | | | [phone] | | | | | | | Fax: | | | | | | | [phone] | + +--------+ + + + + Encounter Details +--------+---------+ + + + | Date | Type | Department | Care Team | Description | +--------+---------+ + + + | 12/15/ | Office | [facility] | Augustus Olmos, | Right wrist pain | | 2019 | Visit | [facility] | MD [address]reen [address] | (Primary Dx); Right | | | | MEDICINE LEFTY | [place] [address] | wrist fracture, | | | | [address] | [phone] | open, initial | | | | [place], [place] | | encounter; Acquired | | | | [address] | | trigger finger of | | | | [phone] | | right middle finger | +--------+---------+ [...] note may be different from the original. [facility]: Orthopedic Surgery Patient Name:Comfort Joe [...] TUNNEL RELEASE; Surgeon: Augustus Olmos MD; Location: [facility]; Service: Orthopedics;; SECTION 1991 CHOLECYSTECTOMY 1992 ELBOW SURGERY Left 2014 GASTRIC BYPASS 2009 HARDWARE PRESENT SCREWS IN LEFT LEG HARDWARE REMOVAL Right 11/12/2017 Procedure: HAND - HARDWARE REMOVAL; Surgeon: Augustus Olmos MD; Location: [facility]; Service: Orthopedics; Laterality: Right; HYSTERECTOMY 1991 ORIF TIBIA & FIBULA FRACTURES Left 2008 STELLATE GANGLION BLOCK Right 05/12/2018 STELLATE GANGLION BLOCK Right 05/26/2018 STELLATE GANGLION BLOCK Right 06/02/2018 WRIST SURGERY Right 08/13/2017 Procedure: WRIST - ORIF; Surgeon: Augustus Olmos MD; Location: [facility]; Service : Orthopedics; Laterality: Right; RT [...] MD This document has been prepared with [employer] voice recognition system. The possibility of "s ound alike" chandelier maker errors, and additions, or deletions may occur. [...] | + + + + + | [facility] | [address] | [place] [address] | | + + + + + [...]
--- OUTSIDE RECORDS SUMMARY | ~2019-03-13 | XMS | Encounter Summary ---
Demographics + + + | Address | [address] | | | [place] [address] | + + + | Home Phone | | + + + | Preferred Language | Unknown | + + + | Marital Status | | + + + | Temple Affiliation | 1013 | + + + | Race | Unknown | + + + | Ethnic Group | Unknown | + + + Author + + + | Author | [facility] | + + + | Organization | [facility] | + + + | Address | Unknown | + + + | Phone | Unavailable | + + + Support + + + + + | Name | Relationship | Address | Phone | + + + + + | Tacho Joe | ECON | [address] | | | | | [place] | | | | | [address] | | + + + + + Care Team Providers + +------+ + | Care Coal Shoveler Name | Role | Phone | + [...] + + | 01/09/ | Hospital | [facility] | Augustus Olmos, | Right wrist pain; | | 2018 | Encounter | [facility] | MD [address] | Right wrist pain; | | | | [address] | [place] [address] | Right wrist | | | | [place], [place] | [phone] | fracture, open, | | | | [address] | | initial encounter | | | | [phone] | | | +--------+ + + + [...] note may be different from the original. [facility] Service: Orthopedic Surgery Brief Post-op [...] MD [address] [place] [id number] Medication List START taking these medications ondansetron [...] Your Medications These medications were sent to [id number] - [place], [place] - [address] [place] [address] ondansetron 4 MG tablet You can get [...]
--- OUTSIDE RECORDS SUMMARY | ~2019-03-13 | XMS | Clinical Summary ---
Demographics + + + | Address | [address] | | | [place] [address] | + + + | Home Phone | | + + + | Preferred Language | Unknown | + + + | Marital Status | | + + + | Yarsanism Affiliation | Unknown | + + + [...] Team Providers + +------+ + | Care Plate Straightener Name | Role | Phone | + +------+ + PP | Unavailable | + +------+ + Source Comments DEVAN is fully live on both [facility] and [facility] Allergies Not on File Current Medications [...]
--- OUTSIDE RECORDS SUMMARY | ~2019-03-13 | XMS | Encounter Summary ---
Demographics + + + | Address | [address] | | | [place] [address] | + + + | Home Phone | | + + + | Preferred Language | Unknown | + + + | Marital Status | | + + + | Episcopal Affiliation | 1013 | + + + | Race | Unknown | + + + | Ethnic Group | Unknown | + + + Author + + + | Author | [facility] | + + + | Organization | [facility] | + + + | Address | Unknown | + + + | Phone | Unavailable | + + + Support + + + + + | Name | Relationship | Address | Phone | + + + + + | Tacho Joe | ECON | [address] | | | | | [place] | | | | | [address] | | + + + + + Care Team Providers + +------+ + | Care Knit Goods Mender Name | Role | Phone | + +------+ + | Madhu Calderon MD | PCP | | + +------+ + Encounter Details +--------+ + + + + | Date | Type | Department | Care Team | Description | +--------+ + + + + | 01/09/ | Anesthesia | [facility] | Noe Hansen, | | | 2019 | Event | [facility] | [address] | | | | | [address] | [place] [address] | | | | | [place], [place] | [phone] | | | | | [address] | | | | | | [phone] | | | +--------+ + + + [...]
--- OUTSIDE RECORDS SUMMARY | ~2019-03-13 | XMS | Encounter Summary ---
Demographics + + + | Address | [address] | | | [place] [address] | + + + | Home Phone | | + + + | Preferred Language | Unknown | + + + | Marital Status | | + + + | Anabaptist Affiliation | 1013 | + + + | Race | Unknown | + + + | Ethnic Group | Unknown | + + + Author + + + | Author | [facility] | + + + | Organization | [facility] | + + + | Address | Unknown | + + + | Phone | Unavailable | + + + Support + + + + + | Name | Relationship | Address | Phone | + + + + + | Tacho Joe | ECON | [address] | | | | | [place] | | | | | [address] | | + + + + + Care Team Providers + +------+ + | Care Lumber Racker Name | Role | Phone | + +------+ + | Madhu Calderon MD | PCP | | + +------+ + Encounter Details +--------+ + + + + | Date | Type | Department | Care Team | Description | +--------+ + + + + | 01/09/ | Procedure | [facility] | | | | 2019 | Pass | [facility] | | | | | | [address] | | | | | | [place] | | | | | | [address] | | | | | | [phone] | | | +--------+ + + + [...]
--- OUTSIDE RECORDS SUMMARY | ~2019-03-13 | XMS | Encounter Summary ---
Demographics + + + | Address | [address] | | | [place] [address] | + + + | Home Phone | | + + + | Preferred Language | Unknown | + + + | Marital Status | | + + + | Jew Affiliation | 1013 | + + + | Race | Unknown | + + + | Ethnic Group | Unknown | + + + Author + + + | Author | [facility] | + + + | Organization | [facility] | + + + | Address | Unknown | + + + | Phone | Unavailable | + + + Support + + + + + | Name | Relationship | Address | Phone | + + + + + | Tacho Joe | ECON | [address] | | | | | [place] | | | | | [address] | | + + + + + Care Team Providers + +------+ + | Care Conservation Policy Analyst Name | Role | Phone | + [...] [place] | | | | | | [address] | | | | | | [phone] | | | +--------+ + + + [...]
--- OUTSIDE RECORDS SUMMARY | ~2019-03-13 | XMS | Clinical Summary ---
Demographics + + + | Address | [address] | | | [place] [address] | + + + | Home Phone | | + + + | Preferred Language | Unknown | + + + | Marital Status | | + + + | Christian Affiliation | 1013 | + + + | Race | Unknown | + + + | Ethnic Group | Unknown | + + + Author + + + | Author | [facility] | + + + | Organization | [facility] | + + + | Address | Unknown | + + + | Phone | Unavailable | + + + Support + + + + + | Name | Relationship | Address | Phone | + + + + + | Tacho Cuenca | ECON | [address] | | | | | [place] | | | | | [address] | | + + + + + Care Team Providers + +------+ + | Care Glass Vial Filler Name | Role | Phone | + [...] Overview: Added automatically from request for surgery [id number] | + + + + + | Right wrist fracture, open, initial encounter | 10/03/2017 | + + + + + | Overview: Added automatically from request for surgery [id number] | + + + + + | Right wrist fracture | 08/12/2017 | + + + + + | Overview: Added automatically from request for surgery [id number] | + + Encounters +--------+ + + [...] | | [address], | | | [id number] | | | [address] | | | [place] | | | [place] | | | [address] | | | [phone] | | | [...] | were sent | | | to [facility] | | | PHARMACY | | | #[facility] - | | | [place], | | | [place] - [address] | [address] | | [address], | | | [place] | | | [place] [address] | | | Phone: | | | [phone] | | | 9 | | | [...] | + +------+--------+ +--------+--------+--------+ | Plate Lcp [id number] Strt Wrst | | Right: | SYNTHES [...] V/A Ss 2.4x12 | | Right: | [facility] - | | | 02.210 | | - SnaImplanted: Qty: 1 on | | Wrist | SYNT | | | .112 | | 08/13/2017 by Augustus Olmos | | | | | | /NA | | MD Vish | | | | | | /NA | + +------+--------+ +--------+--------+--------+ | Screw Crtx Slf-Tp Strdr | | Right: | [facility] - | | | 201.76 | | [...] | + + + + + | [facility] | [address] | [place] [address] | | + + + + + [...] | [employer] | ODS | [id number] | | | | | | HEALTH | | | | | | | PLAN | | | | | + +--------+ +------+-------+---------+ | [employer] | [employer]-NET | [id number] | | | | | | WORK [...] | Self | [birth year] | Home: | [address] | | | al/Fam | | 1965 | [phone] [place] | | | [place]ile | | | [phone] | [address] | + +--------+ +--------+ + +
[~2019-03-13 13:00] MED LIST changes: +CALCITRIOL0.25 MCG PO; +HYDROCODON-ACE1 EA11 PO; +LEVAQUIN750 MG PO; +MIRALAX17 GM PO; +NASCOBAL1 EACH NAS; +NEURONTIN300 MG PO; +OXYCODONE HCL5 MG PO; +RITALIN LA40 MG PO; +RITALIN10 MG PO; +SERTRALINE HCL25 MG PO; +SUMATRIPTAN SUC50 MG PO
--- OUTSIDE RECORDS SUMMARY | 2019-03-13 13:04 | XMS ---
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 Enrique VISIT COUNT (12 MO.) 1 RUSSELL Vuong TOTAL 1 NOTE: Visits indicate total known visits. ED/UCC VISIT TRACKING (12 MO.) 03/13/2019 13:01 RUSSELL [facility] [place] TYPE: Emergency COMPLAINT: - RIGHT ARM PAIN/INJURY INPATIENT VISIT TRACKING (12 MO.) No inpatient visits to display in this time frame [email or web address]
[2019-03-13] MEDS ORDERED: NORCO 5-325 TA1 EACH PO (13:44)
[2019-03-13] MEDS ORDERED: IBUPROFEN600 MG PO (13:44)
== END 2019-03-13 14:23 | disposition home or self-care (01) ==
LOC: ED 13:00
PROC: 2W3CX1Z Immobilization of Right Lower Arm using Splint (ICD-10-PCS; principal; 2019-03-13)
DX: S69.91XA Unspecified injury of right wrist, hand and finger(s), initial encounter (principal); F32.9 Major depressive disorder, single episode, unspecified; I10 Essential (primary) hypertension; Z98.84 Bariatric surgery status; Z90.710 Acquired absence of both cervix and uterus; Z90.89 Acquired absence of other organs; Z90.49 Acquired absence of other specified parts of digestive tract; Z88.0 Allergy status to penicillin; Z88.5 Allergy status to narcotic agent; Z79.899 Other long term (current) drug therapy; W01.0XXA Fall on same level from slipping, tripping and stumbling without subsequent striking against object, initial encounter
CPT/HCPCS: 29125; 73110; 99283-25

== ENCOUNTER 2023-09-04 08:36 | Emergency (ER) | payer OTHER ==
[~2023-09-04] VITALS: Ht 175.3 cm; Wt 103.9 kg
[~2023-09-04 08:36] MED LIST changes: +IBUPROFEN600 MG PO; +IRBESARTAN-HCT1 EACH PO
[2023-09-04] MEDS ORDERED: MODAFINIL200 MG PO (08:58)
[2023-09-04] MEDS ORDERED: SERTRALINE HCL100 MG PO (08:59)
[2023-09-04] MEDS ORDERED: OZEMPIC1 MG/0.71 SUB-Q (09:00)
[2023-09-04 09:33] LABS: BASOPHILS 0.7 % (0-2); EOSINOPHILS 1.7 % (0-6); HEMATOCRIT 45.6 % (35.0-50.0); LYMPHOCYTES 25.8 % (24-44); MCHC 32.9 g/dl (30-36); MCV 88.2 fl (81-99); MONOCYTES 8.9 % (0-12); NEUTROPHILS 62.9 % (39-80); PLATELET COUNT 244 K/uL (140-440); RBC 5.17 M/ul (4.3-5.7); RDW 13.4 (10.5-15.0)
[2023-09-04 09:50] LABS: ALBUMIN/GLOBULIN RATIO 1.21 (1.1-2.4); ANION GAP 11.7 (7-21); BILIRUBIN, TOTAL 0.6 ng/dL (0.2-1.0); BUN/CREATININE RATIO 23.14 (6.0-28.6); CALCIUM 9.2 mg/dL (8.5-10.1); CREATININE, SERUM 1.08 mg/dL (0.55-1.02); MAGNESIUM 1.9 mg/dL (1.8-2.4); POTASSIUM 3.7 mmol/L (3.5-5.1); PROTEIN, TOTAL 7.3 g/dL (6.4-8.2)
[2023-09-04 10:33] VITALS: BP 121/71
--- NOTE | 2023-09-05 21:05 | EKG ---
[facility] [address] [place] [address] Signed Normal sinus rhythm Normal ECG When compared with ECG of 02-AUG-2017 09:17, QT has shortened Confirmed by Yg Goel MD () on 09/05/2023 9:05:09 PM Electronically Signed By: YG GOEL MD 09/05/232104 PATIENT NAME: THOMAS HIGGINBOTHAM Electrocardiogram DATE OF : 63 PHYSICIAN: YG GOEL MD REPORT #: [id number] REPORT IS CONFIDENTIAL AND NOT TO BE RELEASED WITHOUT AUTHORIZATION
== END 2023-09-04 10:30 | disposition home or self-care (01) ==
LOC: ED 08:36
PROVIDERS: Emergency Medicine
DX: R55 Syncope and collapse (principal); S80.01XA Contusion of right knee, initial encounter; W19.XXXA Unspecified fall, initial encounter; I10 Essential (primary) hypertension; Z88.0 Allergy status to penicillin; Z88.8 Allergy status to other drugs, medicaments and biological substances; Z88.5 Allergy status to narcotic agent; Z79.899 Other long term (current) drug therapy
CPT/HCPCS: 36415; 71045; 73560; 80053; 83735; 84484; 85025; 93005; 93010; 96360; 99284-25; J7030